=== PATIENT | male | born 1965 | race Caucasian/White ===

== ENCOUNTER 2022-01-07 02:18 | Emergency (ER) | payer BC, SELFPAY ==
[2022-01-07 02:30] VITALS: BP 151/83; PULSE 77; RESP 18; TEMP 36.1; O2SAT 95; BMI 32.4
[2022-01-07 03:38] VITALS: O2SAT 96
--- NOTE | 2022-01-07 03:50 | CRLHL7_ITS ---
For Patients: As a result of the Cures Act, medical imaging exams and procedure reports are released immediately into your electronic medical record. You may view this report before your referring provider. If you have questions, please contact your health care provider. INDICATION: Dyspnea TECHNIQUE: Chest radiograph 1 view COMPARISON: None FINDINGS: Mediastinum: The mediastinum is normal in appearance. The heart silhouette is normal in size and morphology. Lung: Both lungs are unremarkable in appearance. No sign of pleural effusion seen. No pneumothorax is identified. Bone and Soft tissue: Unremarkable for age. IMPRESSION: 1. No acute cardiopulmonary disease is seen. Dictated by: Rupesh Tan MD @ 01/07/2022 04:11:42 (Electronically Signed)
--- NOTE | 2022-01-07 03:51 | ED.CHESTPAIN ---
HPI - Chest Pain General Chief Complaint: Chest Pain Stated Complaint: Extreme pain in left and rt shoulder. Time Seen by Provider: 01/07/22 02:31 History of Present Illness HPI narrative: 36-year-old man presenting to the emergency department initially complaining of shoulder pain bilaterally but then also chest pain. Apparently about 6-1/2 hours prior to this interview was in bed started to feel a sensation of restless legs all over. Then some tingling this in his left hand and and then increasing bilateral shoulder to left chest area and left lower anterior rib area pain. This apparently was unbearable. Significant other accompanies him here today says that his pain tolerance is quite high and this was rather significant. No vomiting reported. No fever cough and cold symptoms. He does smoke. Denies a personal or family history of cardiovascular disease. They did have the thought that this might be anxiety as I discuss differential with them though reluctant to chalk it all up to that. He has had panic attacks in the past. Movement does exacerbate pain. Does report a history of some back pain in the past and that he has received Flexeril. Says ibuprofen acetaminophen do not help. Review of Systems Status of ROS Reports: 6 or more systems reviewed and unremarkable except as noted in History and below [facility], [facility] Social History Smoking Status: Current every day smoker What tobacco products do you use: cigarettes Do you use any of these nicotine containing products: None Second hand tobacco smoke exposure: No How often do you have a drink containing alcohol: 2-3 times a week How many standard drinks containing alcohol do you have on a typical day: 1 or 2 How often do you have six or more drinks on one occasion: Never AUDIT-C Alcohol total score: 3 Non-prescribed substance use: denies use service: No Exam Narrative Exam Narrative: Large man darkly complected. Deep voice consistent with smoking. Is breathing easily. Appears mildly anxious. Moving all extremities without difficulty. Good strength. Well perfused peripherally with equal radial pulses. Lungs appear to be clear. Cardiovascular RRR no MR Grimaldo albeit a little distant. Musculoskeletal with reproducible pain to palpation over the left rhomboid and trapezial musculature. He does report some soreness to rotational movement of the neck to the left. Little sore to anterior palpation of the left chest and the left anterior lateral rib margin. Oropharynx hyperemic Const Vital Signs, click to edit/add: Vital Signs - 24 hr 01/07/22 02:30 01/07/22 04:46 01/07/22 03:38 Temperature 97.0 F L Pulse Rate [Left Pulse Oximeter] 77 62 Respiratory Rate 18 16 Blood Pressure [Right Upper Arm] 151/83 H 147/83 H Pulse Oximetry 95 98 96 Oxygen Delivery Method Room Air Room Air 01/07/22 05:11 01/07/22 06:00 Temperature Pulse Rate [Left Pulse Oximeter] 66 83 Respiratory Rate 18 16 Blood Pressure [Right Upper Arm] 116/75 107/74 Pulse Oximetry 98 99 Oxygen Delivery Method Room Air Documenting provider has reviewed patient's vital signs: yes Course Reevaluation(s) Reevaluation #1: Improved. Still discomfort with left arm movement. Restless leg still present. Vital Signs Vital signs: Initial Vital Signs Temperature 97.0 F L 01/07/22 02:30 Temperature Source Tympanic 01/07/22 02:30 Pulse Rate 77 01/07/22 02:30 Pulse Rhythm 01/07/22 02:30 Respiratory Rate 18 01/07/22 02:30 Blood Pressure 151/83 H 01/07/22 02:30 Blood Pressure Mean 105 01/07/22 02:30 Blood Pressure Position Sitting 01/07/22 02:30 Pulse Oximetry 95 01/07/22 02:30 Oxygen Delivery Method 01/07/22 02:30 Vital Signs Temperature 97.0 F L 01/07/22 02:30 Pulse Rate 77 01/07/22 02:30 Respiratory Rate 18 01/07/22 02:30 Blood Pressure 151/83 H 01/07/22 02:30 Pulse Oximetry 95 01/07/22 02:30 Oxygen Delivery Method 01/07/22 02:30 Temperature 97.0 F L 01/07/22 02:30 Pulse Rate 83 01/07/22 06:00 Respiratory Rate 16 01/07/22 06:00 Blood Pressure 107/74 01/07/22 06:00 Pulse Oximetry 99 01/07/22 06:00 Oxygen Delivery Method 01/07/22 06:00 MDM - Chest Pain MDM Narrative Medical decision making narrative: I would suspect anxiety exacerbation/panic attack and resulting muscle spasms. Will workup chest pain. Labs overall reassuring. D-dimer normal. Troponin negative. Did receive fluids and low-dose morphine and ketorolac. There was continue complaint of pain and restless legs but then subsequently fell asleep. Had tentatively ordered pain dosing of ketorolac piggyback but was never given. Lab Data Attestation: I reviewed the patient's lab results. Labs: Lab Results 01/07/22 01/07/22 01/07/22 Range/Units 03:51 04:13 04:13 WBC 6.96 (4.50-11.00) K/uL RBC 4.58 (4.30-5.90) m/uL Hgb 14.2 (13.5-17.5) gm/dL Hct 41.6 (37.0-53.0) % MCV 91 (80-100) fL MCH 31 (26-34) pg MCHC 34 (32-36) gm/dL RDW Coeff of Timbo 12.8 (11.5-15.5) % Plt Count 259 (140-440) K/uL Neut % (Auto) 53.8 (42.0-72.0) % Lymph % (Auto) 33.2 (20-44) % [place] % (Auto) 8.3 (0.0-11.0) % Eos % (Auto) 4.2 (0.0-7.0) % Baso % (Auto) 0.4 (0.0-3.0) % Neut # (Auto) 3.74 (1.7-7.0) K/uL Lymph # (Auto) 2.31 (0.90-2.90) K/uL [place] # (Auto) 0.60 (0.00-0.90) K/UL Eos # (Auto) 0.29 (0.00-0.50) K/uL Baso # (Auto) 0.03 (0.00-0.30) K/uL Abs Immat Gran (auto) 0.01 (0.00-0.30) K/uL Imm/Tot Granulo (auto) 0.1 % D-Dimer Quant (PE/DVT) 0.38 (0.00-0.50) ug/ml Sodium (135-149) mmol/L Potassium (3.6-5.1) mmol/L Chloride (96-114) mmol/L Carbon Dioxide (20-32) mmol/L BUN (7-30) mg/dL Creatinine (0.5-1.5) mg/dL Estimated Creat Clear Estimated GFR ml/min Glucose (60-115) mg/dL Calcium (8.4-10.6) mg/dL Magnesium (1.5-2.6) mg/dL Total Bilirubin (0.1-1.5) mg/dL Direct Bilirubin (0.0-0.5) mg/dL AST (12-35) U/L ALT (4-50) U/L Alkaline Phosphatase (40-150) U/L Troponin I (0.01-0.04) ng/mL Total Protein (6.0-8.3) g/dL Albumin (3.3-5.0) g/dL POC Troponin I 0.00 L (0.01-0.04) ng/ml 01/07/22 01/07/22 Range/Units 04:13 04:13 WBC (4.50-11.00) K/uL RBC (4.30-5.90) m/uL Hgb (13.5-17.5) gm/dL Hct (37.0-53.0) % MCV (80-100) fL MCH (26-34) pg MCHC (32-36) gm/dL RDW Coeff of Timbo (11.5-15.5) % Plt Count (140-440) K/uL Neut % (Auto) (42.0-72.0) % Lymph % (Auto) (20-44) % [place] % (Auto) (0.0-11.0) % Eos % (Auto) (0.0-7.0) % Baso % (Auto) (0.0-3.0) % Neut # (Auto) (1.7-7.0) K/uL Lymph # (Auto) (0.90-2.90) K/uL [place] # (Auto) (0.00-0.90) K/UL Eos # (Auto) (0.00-0.50) K/uL Baso # (Auto) (0.00-0.30) K/uL Abs Immat Gran (auto) (0.00-0.30) K/uL Imm/Tot Granulo (auto) % D-Dimer Quant (PE/DVT) (0.00-0.50) ug/ml Sodium 137 (135-149) mmol/L Potassium 4.3 (3.6-5.1) mmol/L Chloride 111 (96-114) mmol/L Carbon Dioxide 22 (20-32) mmol/L BUN 16 (7-30) mg/dL Creatinine 0.9 (0.5-1.5) mg/dL Estimated Creat Clear 110.84 Estimated GFR 101 ml/min Glucose 100 (60-115) mg/dL Calcium 8.9 (8.4-10.6) mg/dL Magnesium 2.0 (1.5-2.6) mg/dL Total Bilirubin 0.5 (0.1-1.5) mg/dL Direct Bilirubin 0.2 (0.0-0.5) mg/dL AST 25 (12-35) U/L ALT 23 (4-50) U/L Alkaline Phosphatase 65 (40-150) U/L Troponin I < 0.01 L (0.01-0.04) ng/mL Total Protein 6.8 (6.0-8.3) g/dL Albumin 4.2 (3.3-5.0) g/dL POC Troponin I (0.01-0.04) ng/ml ECG Data Attestation: I personally reviewed and interpreted this ECG as follows: (Normal sinus rate of 66) Discharge Plan Discharge Clinical Impression: Atypical chest pain, Panic attack Patient Disposition: Home w/ Parent or Adult Condition: Improved Additional Instructions: Hydrate. Rest. Stretch. Try to get in a little heart pumping exercise daily. Return for increasing and persistent chest pain particularly if accompanied by shortness of breath, nausea, diaphoresis. Follow Up/Referrals: Provider,Not a Local [Primary Care Provider] - Stand Alone Forms: [employer] Info Instructions
--- OUTSIDE RECORDS SUMMARY | 2022-01-07 04:10 | XMS_ITS | Clinical Summary ---
:1965 Author Organization [employer] [facility] [place] [address] Care Team Providers Name Role Phone Pcp, No Primary Care Provider Unavailable Allergies No known active allergies Medications Medication Sig Dispensed Refills Start Date End Date Status cyclobenzaprine Use up to 45 Tablet 1 05/12/2021 Act toni (FLEXERIL) 10 mg three times tabletIndications: daily for Chronic pain of left muscle knee spasm/back pain. Use mostly at night only, may make you drowsy. naproxen (NAPROSYN) TAKE 1 60 Tablet 1 07/06/2021 Active 500 mg TABLET(500 tabletIndications: MG) BY MOUTH Chronic pain of left TWICE DAILY knee WITH MEALS NEEDED FOR PAIN sildenafiL, Take 20-100 30 Tablet 11 01/04/2022 Activ e pulm.hypertension, mg 30min to (REVATIO) 20 mg 4 hours tabletIndications: before Erectile dysfunction sexual of organic origin activity. Max 100mg/24hr. sildenafiL, TAKE 5 50 Tablet 1 11/19/2021 Discont inued pulm.hypertension, TABLETS BY 2 (*Med (REVATIO) 20 mg MOUTH ONCE com plete/Regimen tabletIndications: DAILY IF c omplete/Level Erectile dysfunction NEEDED. of care change) of organic origin Active Problems No known active problems Encounters Date Type Specialty Care Team Description 01/07/2022 Nurse Triage Pcp, No Pain; restlessn ess 01/04/2022 Office Visit Alyson Chu MD Knee Pain/problem (left knee, x4 surger ies, arthritis in kn ee, 10 on pain scale at w orst); Pain (Tennis elbow/) ; Lab (Lipid panel, testoste gissell levels); Foot Problem (b ottom of both feet, lump, cau ses pain when touched); Immunization/In jection 01/04/2022 Travel 11/17/2021 Refill Ravi Nieto, Refill Request (Sildenafil (Pulm.hypertens ion)) 10/30/2021 Refill Ravi Nieto, Refill Request (Sildenafil (Pulm.hypertens ion)) from Last 3 Months Immunizations Name Administration Dates Next Due Tdap 01/04/2022 Social History Tobacco Use Types Packs/Day Years Used Date Current Every Day Smoker Cigarettes Smokeless Tobacco: Never Used Tobacco Cessation: Ready to Quit: No; Co unseling Given: Yes Alcohol Use Standard Drinks/Week Comments Yes 0 (1 standard drink = 0.6 oz pure alcoho l) occassionally Alcohol Habits Answer Date Recorded How often do you have a drink containing alcohol? Not asked How many drinks containing alcohol do you have on a Not aske d typical day when you are drinking? How often do you have six or more drinks on one occasion? No t asked Comment: occassionally 05/08/2021 Sex Assigned at Date Recorded Not on file COVID-19 Exposure Response Date Recorded In the last 10 days, have you been in contact with No / Unsu re 01/04/2022 2:46 PM [employer] [employer] someone who was confirmed or suspected to have Coronavirus/COVID-19? Obstetrics History Last Filed Vital Signs Vital Sign Reading Time Taken Comments Blood Pressure 136/80 01/04/2022 3:06 PM [employer] [employer] Pulse 68 01/04/2022 3:06 PM [employer] [employer] Temperature 36.7 ??C (98 ??F) 05/08/2021 3:22 PM CDT Respiratory Rate 18 05/08/2021 3:22 PM CDT Oxygen Saturation 99% 01/04/2022 3:06 PM [employer] [employer] Inhaled Oxygen Concentration - - Weight 117.7 kg (259 lb 6.4 oz) 01/04/2022 3:06 PM [employer] [employer] Height 190.6 cm (6' 3.04) 01/04/2022 3:06 PM [employer] [employer] Body Mass Index 32.39 01/04/2022 3:06 PM [employer] [employer] Plan of Treatment Health Maintenance Due Date Last Done Comments COVID-19 vaccine series (#1) 04/21/1967 Pneumococcal series for age 19-64 (1 - 1972 PCV) HIV for age 15-65 1981 Hepatitis C screening for age 18-79 1984 Colonoscopy through age 75 10/20/2011 Lipids for age 45-75 10/20/2011 Zoster (shingles) series for age 50+ (1 of 2016 2) Influenza for age 50-64 10/22/2021 BMI (ht and wt on same day) for age 18+ 01/04/2023 01/05/20, 05/08/2021 Depression screening for age 12+ 01/07/2023 01/07/2022, Tetanus booster 01/05/2032 01/04/2022 Tdap Completed 01/04/2022 Results Not on filefrom Last 3 Months Insurance Payer Benefit Plan / Subscriber ID Effective Dates Phone Addre ss Type Group BLUE CROSS BLUE CROSS OF [id number] 2021-Present [address] [address] [place] [address] Care Teams Returns Clerk Relationship Specialty Start Date End Date Pcp, No PCP - General 01/12/21 .
[2022-01-07 04:22] LABS: Basophils Absolute Auto 0.03 K/uL (0.00-0.30); Basophils Percent Auto 0.4 % (0.0-3.0); Eosinophils Absolute Auto 0.29 K/uL (0.00-0.50); Eosinophils Percent Auto 4.2 % (0.0-7.0); Hematocrit 41.6 % (37.0-53.0); Hemoglobin* 14.2 gm/dL (13.5-17.5); Immature Granulocytes Abs Auto 0.01 K/uL (0.00-0.30); Immature Granulocytes Pct Auto 0.1 %; Lymphocytes Absolute Auto 2.31 K/uL (0.90-2.90); Lymphocytes Percent Auto 33.2 % (20-44); Mean Corpuscular HGB Conc 34 gm/dL (32-36); Mean Corpuscular Hemoglobin 31 pg (26-34); Mean Corpuscular Volume 91 fL (80-100); Monocytes Percent Auto 8.3 % (0.0-11.0); Neutrophils Absolute Auto 3.74 K/uL (1.7-7.0); Neutrophils Percent Auto 53.8 % (42.0-72.0); Platelet Count* 259 K/uL (140-440); RDW Coefficient of Variation % 12.8 % (11.5-15.5); Red Blood Count 4.58 m/uL (4.30-5.90); White Blood Count* 6.96 K/uL (4.50-11.00)
[2022-01-07] MEDS: LORazepam 2 MG/ML inj 0.5 MG IVP (04:22)
[2022-01-07] MEDS: 0.9 % SODIUM CHLORIDE 500 ML 500 ML IV (04:22)
[2022-01-07] MEDS: MORPHINE 4 MG/ML INJ IVP (04:22)
[2022-01-07 04:25] LABS: Slide Review Reflex No
[2022-01-07 04:37] LABS: Chloride* 111 mmol/L (96-114); Potassium* 4.3 mmol/L (3.6-5.1); Sodium* 137 mmol/L (135-149)
[2022-01-07 04:40] LABS: Blood Urea Nitrogen* 16 mg/dL (7-30); Calcium* 8.9 mg/dL (8.4-10.6); Carbon Dioxide* 22 mmol/L (20-32); Creatinine* 0.9 mg/dL (0.5-1.5); Est. Creatinine Clearance* 110.84; Estimated Glomerular Filt Rate 101 ml/min; Glucose* 100 mg/dL (60-115)
[2022-01-07] MEDS: KETOROLAC 30 MG/ML inj IVP (04:43)
[2022-01-07 04:46] VITALS: BP 147/83; PULSE 62; RESP 16; O2SAT 98
[2022-01-07 04:50] LABS: D Dimer Quantitative* 0.38 ug/ml (0.00-0.50)
[2022-01-07 04:54] LABS: Troponin I* < 0.01 ng/mL (0.01-0.04)
[2022-01-07 04:55] LABS: Alanine Aminotransferase* 23 U/L (4-50); Albumin* 4.2 g/dL (3.3-5.0); Alkaline Phosphatase* 65 U/L (40-150); Aspartate Amino Transferase* 25 U/L (12-35); Bilirubin Direct* 0.2 mg/dL (0.0-0.5); Bilirubin Total* 0.5 mg/dL (0.1-1.5); Total Protein* 6.8 g/dL (6.0-8.3)
[2022-01-07 05:11] VITALS: BP 116/75; PULSE 66; RESP 18; O2SAT 98
[2022-01-07 06:00] VITALS: BP 107/74; PULSE 83; RESP 16; O2SAT 99
== END 2022-01-07 06:36 | disposition home or self-care (01) ==
PROVIDERS: Emergency Provider Family Medicine
DX: R07.89 Other chest pain (principal); F41.0 Panic disorder [episodic paroxysmal anxiety]
CPT/HCPCS: 36415; 71045; 80048; 80076; 83735; 84484; 85025; 85379; 93005; 94761; 96365; 96375; 99283; 99284; 99285; J1885; J2060; J2270; J7120

== ENCOUNTER 2023-03-28 06:27 | Day surgery (SDC) | payer OTHER, SELFPAY ==
[2023-03-28] VITALS (7 sets, daily range): BP systolic 131–150; BP diastolic 77–90; PULSE 58–71; RESP 15–18; TEMP 36.6; O2SAT 96–97; BMI 19.9
--- OUTSIDE RECORDS SUMMARY | 2023-03-28 06:30 | XMS_ITS | Clinical Summary ---
Author Name Unknown Organization [employer] [facility] Address [place], [place] [address] Care Team Providers Care Manager Roofing Name Role Phone Pcp, No Primary Care Provider Unavailabl e Allergies No known active allergies Medications Medication Sig Dispensed Refills Start Date End Date Status cyclobenzaprine (FLEXERIL) 10 mg tabletIndications :Chronic pain of left knee Use up to three times daily for muscle spasm/back pain. May make you drowsy. 45 Tablet 2 01/28/2023 Active sildenafiL, pulm.hypertension , (REVATIO) 20 mg tabletIndications :Erectile dysfunction of organic origin Take 20-100 mg 30min to 4 hours before sexual activity. Max 100mg/24hr. 50 Tablet 11 01/28/2023 Active varenicline (CHANTIX) 1 mg tabletIndications :Tobacco dependence Take 1 mg by mouth two times daily with meals. 112 Tablet 0 01/28/2023 Active nicotine (NICORETTE) 2 mg gumIndications:To bacco dependence Chew 1 gum (2 mg) every hour while awake as needed for Nicotine Craving. 200 Each 2 01/28/2023 Active nicotine 14 mg/24 hr (NICODERM; HABITROL) 14 mg/24 hr patchIndications: Tobacco dependence Apply 1 Patch on dry, clean, hairless skin once daily. 14 Patch 3 01/28/2023 Active meloxicam 15 mg tabletIndications :Trigger ring finger of left hand,Golfer's elbow, left Take 1 Tablet (15 mg) by mouth once daily. 14 Tablet 0 03/18/2023 Active naproxen (NAPROSYN) 500 mg tabletIndications :Chronic pain of left knee TAKE 1 TABLET(500 MG) BY MOUTH TWICE DAILY WITH MEALS NEEDED FOR PAIN 60 Tablet 1 07/06/2021 03/18/2023 Discontinued (*Patient states no longer taking) amoxicillin-clavu lanate 875-125 mg tablet (AUGMENTIN) Take 1 Tablet by mouth two times daily with meals. 0 05/07/2022 03/18/2023 Discontinued (*Med complete/Reg imen complete/Lev el of care change) predniSONE (DELTASONE) 20 mg tablet As directed 10 mg. 0 05/07/2022 03/18/2023 Discontinued (*Med complete/Reg imen complete/Lev el of care change) meloxicam 15 mg tabletIndications :Trigger ring finger of left hand,Golfer's elbow, left Take 1 Tablet (15 mg) by mouth once daily. 14 Tablet 0 03/18/2023 03/18/2023 Discontinued (*Medication adjustment) Active Problems No known active problems Encounters Date Type Department Care Team Description 03/18/2023 9:00 AM [facility]PER[facility]OR [facility] [address] [place] [address] Marian Cohn MD Occ Med (LEFT elbow and ring finger - 03/17/2023 twisted and had intense pain in the hand) 03/18/2023 Travel 01/31/2023 [facility] [address] [place] [address] Shayla Ragsdale, DO Refill Request; VARENICLINE 01/28/2023 3:40 PM [facility]PERVISOR Phone [facility] [address] [place] [address] Shayla Ragsdale, DO Medication Management 01/12/2023 2:00 PM [facility]PER[facility] [address] [place] [address] Aidan Rodríguez MD Musculoskeletal Problem (Consult left 4th trigger finger, and left elbow pain would like to do injections today per Dr. Charles) 01/12/2023 Travel from Last 3 Months Immunizations Name Administration Dates Next Due Tdap 01/04/2022 Social History Tobacco Use Types Packs/Day Years Used Date Smoking Tobacco: Every Day Cigarettes 1 44.1 Started: 02/21/1979 Smokeless Tobacco: Never Tobacco Cessation:Ready to Q uit: No; Counseling Given: Yes Comments:10-20 cigs daily - bored so he smokes Alcohol Use Standard Drinks/Week Comments Yes 6 (1 standard drink = 0.6 oz pur e alcohol) occassionally PHQ-2 Answer Date Recorded PHQ-2 TOTAL SCORE 0 01/04/2022 Social Connections Answer Date Recorded Frequency of Communication with Friends and Fami ly Not on file 05/08/2021 Sex and Gender Information Value Date Recorded Sex Assigned at Not on file Gender Identity Not on file Sexual Orientation Not on file Obstetrics History Last Filed Vital Signs Vital Sign Reading Time Taken Comments Blood Pressure 129/87 03/18/2023 9:12 AM [facility] SUPERVISOR Pulse 85 03/18/2023 9:12 AM [facility] OFFICE SUPERVISOR Temperature 36.8 ??C (98.2 ??F) 01/12/2023 2:07 PM CS T Respiratory Rate 18 05/08/2021 3:22 PM CDT Oxygen Saturation 96% 03/18/2023 9:12 AM [facility]PERVISOR Inhaled Oxygen Concentration - - Weight 119.7 kg (264 lb) 03/18/2023 9:12 AM [facility] OFF[facility] SUPERVISOR Height 187.4 cm (6' 1.78) 02/04/2022 11:[address] Body Mass Index 34.1 02/04/2022 11:26 AM [facility] OFF[facility] SUPERVISOR Plan of Treatment Health Maintenance Due Date Last Done Comments COVID-19 vaccine series (#1) 04/21/1967 Pneumococcal series for age 6-64 (1 of 2 - PCV) 1972 Colonoscopy through age 75 10/20/[address] (for lung CA) age 50-80 2016 Zoster (shingles) series for age 50+ (1 of 2) 2016 Influenza for age 50-64 10/22/2022 Depression screening for age 12+ 01/07/2023 01/08/20, 01/04/2022 BMI (ht and wt on same day) for age 18+ 02/04/2023 02/04/2022, 01/04/2022, 05/08/2021 Lipids for age 45-75 02/04/2027 02/04/2022 Tetanus booster 01/05/2032 01/04/2022 Tdap Completed 01/04/2022 HIV for age 15-65 Completed 02/04/2022 Hepatitis C screening for age 18-79 Completed 02/04 Care Teams Manager Roofing Relationship Specialty Start Date End Date Pcp, No . PCP - General 01/12/21
[2023-03-28] MEDS: ETHYL CHLORIDE 1 APPLICATION 1 APPLIC TOPICAL (06:50)
[2023-03-28] MEDS: BUPIVACAINE 0.5% 30 ML INJECTION (06:50)
--- NOTE | 2023-03-28 07:08 | SUR.PREOP ---
SAME DAY SURGERY LOCAL INJECTION SITE VERIFICATION WAS PERFORMED BY SURGEON/PA AND PATIENT PRIOR TO LOCAL ANESTHETIC BEING INJECTED TO OPERATIVE SITE.
[2023-03-28] MEDS: BACITRACIN OINTMENT BULK TUBE 1 APPLIC TOPICAL (07:30)
--- NOTE | 2023-03-28 07:30 | PM.ORPRC ---
Procedure Note Date of procedure: 03/28/23 Procedure: PREOPERATIVE DIAGNOSIS: 1. Left ring finger flexor tenosynovitis - trigger finger POSTOPERATIVE DIAGNOSIS: 1. Left ring finger flexor tenosynovitis - trigger finger PROCEDURE: 1. Left ring finger flexor tendon sheath open release (A1 contreras) SURGEON: Rod Ribeiro MD. SPECIAL NEEDS BUS DRIVER: ANIYA Pretty ANESTHESIA: Local anesthetic 4ml via 50:50 mixture of 2 % Lidocaine with epi and 0.5% marcaine plain EBL: 2ml IMPLANTS: None TOURNIQUET: None COMPLICATIONS: None evident INDICATIONS: The patient is a pleasant 57-year-old male who has experienced left ring finger catching/triggering for number of months. It has progressively gotten worse. Given the failure of nonoperative management, and how this affects daily life, surgery was recommended. DESCRIPTION OF PROCEDURE: Following a thorough discussion of risks, benefits, and alternatives consent was obtained and the operative digit(s) was marked. The patient was brought to the operating room and placed supine on the operating table. Local anesthesia induction was undertaken in preop holding. No antibiotics were administered as this was planned to be a local case only. Proper time-out was performed identifying proper patient, site, and procedure. The operative extremity was prepped and draped in the appropriate sterile fashion using ChloraPrep. An incision was made on the palmar surface of the hand overlying the MCP joint region of the appropriate digit(s) respecting the palmar creases being cautious not to cross these perpendicularly. Sharp incision through the skin, and blunt dissection through subcutaneous tissue allowing protection of crossing neurologic structures. The A1 contreras was visualized directly. It was incised sharply with a 15 blade. It was released completely from its distal to proximal extent under direct visualization. The tendon was inspected and found to be mildly striated consistent with some friction. Otherwise, it was intact. The tendon was removed out of the wound, and further inspected. The patient was asked to manually flex and extend the digits and showed no further catching. The catching which was visualized after tourniquet inflation, was no longer evident with reproduction of a manual fist and relaxation. Closure was performed with 4-O nylon in interrupted fashion. Soft dressings were applied, and the patient was transferred to the recovery room in stable condition. PLAN: 1. Encourage elevation of the operative extremity. 2. Range of motion and icing of the fingers and hand/wrist as tolerated/needed. 3. Ibuprofen/acetaminophen and/or oxycodone as needed for pain control. 4. Follow up with PA visit in 12-16 days for wound check and suture removal.
--- NOTE | 2023-03-28 07:47 | SUR.PHASEII ---
Patient did not care for food/drink. Patient verbalized readiness to go home and understanding of post operative instructions.
== END 2023-03-28 07:47 | disposition home or self-care (01) ==
PROVIDERS: PCP Student in an Organized Health Care Education/Training Program; Visit Provider Orthopaedic Surgery Sports Medicine
PROC: (CPT 26055; principal; 2023-03-28 07:15)
DX: M65.342 Trigger finger, left ring finger (principal); M65.842 Other synovitis and tenosynovitis, left hand
CPT/HCPCS: 26055; J0665

== ENCOUNTER 2023-06-15 06:00 | Day surgery (SDC) | payer OTHER, SELFPAY ==
--- OUTSIDE RECORDS SUMMARY | 2023-06-15 06:03 | XMS_ITS | Clinical Summary ---
Author Name Unknown Organization [facility] Address [place], [place] [address] Care Team Providers Care Internist Medical Doctor Md Name Role Phone Pcp, No Primary Care [...] Max 100mg/24hr. 50 Tablet 11 01/28/2023 Active meloxicam 15 mg tabletIndications :Trigger ring finger of left hand,Golfer's elbow, left Take 1 Tablet (15 mg) by mouth once daily. 14 Tablet 03/18/2023 Active varenicline (CHANTIX) 1 mg tabletIndications :Tobacco dependence Take 1 mg by mouth two times daily with meals. 112 Tablet 01/28/2023 06/06/2023 Discontinued (*Patient states no longer taking) nicotine (NICORETTE) 2 mg gumIndications:To bacco dependence Chew 1 gum (2 mg) every hour while awake as needed for Nicotine Craving. 200 Each 2 01/28/2023 06/06/2023 Discontinued (*Patient states no longer taking) nicotine 14 mg/24 hr (NICODERM; HABITROL) 14 mg/24 hr patchIndications: Tobacco dependence Apply 1 Patch on dry, clean, hairless skin once daily. 14 Patch 3 01/28/2023 06/06/2023 Discontinued (*Patient states no longer taking) Active Problems No known active problems Encounters Date Type Department Care Team Description 06/06/2023 10:25 AM CDT Office Visit [facility] [address] [facility] [address] Shayla Ragsdale, Pre-Op Exam (Having ulna nerve moved 06/15/23 [facility], dr blade beltre ) 06/06/2023 Travel 03/18/2023 9:00 AM GROCERY SACKER Office Visit [facility] [address] [facility] [place] [address] Marian Cohn MD Occ Med (LEFT elbow and ring finger - 03/17/2023 twisted and had intense pain in the hand) 03/18/2023 Travel from Last 3 Months Immunizations Name Administration Dates Next Due Tdap 01/04/2022 Social History Tobacco Use Types Packs/Day Years Used Date Smoking Tobacco: Every Day Cigarettes 1 44.3 Started: 02/21/1979 Smokeless Tobacco: Never Tobacco Cessation:Ready [...] Sign Reading Time Taken Comments Blood Pressure 142/79 06/06/2023 10:26 AM CDT Pulse 67 06/06/2023 10:26 AM CDT Temperature 36.8 ??C (98.2 ??F) 01/12/2023 2:07 PM CS T Respiratory Rate 18 05/08/2021 3:22 PM CDT Oxygen Saturation 99% 06/06/2023 10:26 AM CDT Inhaled Oxygen Concentration - - Weight 122 kg (269 lb) 06/06/2023 10:26 AM CDT Height 188 cm (6' 2) 06/06/2023 10:26 AM CDT Body Mass Index 34.54 06/06/2023 10:26 AM CDT Plan of Treatment Health Maintenance Due Date Last Done Comments Pneumococcal series for age 6-64 (1 of 2 - PCV) 1972 Colonoscopy through age 75 10/20/[address] (for lung CA) ag e 50-80 2016 Zoster (shingles) series for age 50+ (1 of 2) 2016 COVID-19 vaccine series (2022-24 season) 2022 Depression screening for age 12+ 01/07/2023 01/08/20 22, 01/04/2022 Influenza for age 50-64 10/23/2023 BMI (ht and wt on same day) for age 18+ 06/05/2024 06/06/2023, 02/04/2022, 01/04/2022, Additional history exists Lipids for age 45-75 02/04/2027 02/04/2022 Tetanus booster 01/05/2032 01/04/2022 Tdap Completed 01/04/2022 HIV for age 15-65 Completed 02/04/2022 Hepatitis C screening for ag e 18-79 Completed 02/04/2022 Procedures Procedure Name Priority Date/Time Associated Diagnosis Comments ANTI HIV 1/2 Routine 02/04/2022 12:13 PM GROCERY SACKER Screening for HIV (human immunodeficiency virus) ANTI HCV Routine 02/04/2022 12:13 PM GROCERY SACKER Need for hepatitis C screening test LIPID PANEL W REFLEX MEASURED LDL Routine 02/04/2022 12:13 PM GROCERY SACKER Screening for lipid disorders from Last 3 Months or Most Recently Relevant to Health Maintenance Results * (ABNORMAL) LIPID PANEL W REFLEX MEASURED LDL [[id number]] (02/04/2022 12:13 PM GROCERY SACKER) CHOLESTEROL,TOTAL 222(H) 100 - 199 mg/dL 02/06/2022 9:38 PM GROCERY SACKER [facility] TRIGLYCERIDES 69 <150 mg/dL 02/06/2022 9:38 PM GROCERY SACKER [facility] HDL CHOLESTEROL 45 >40 mg/dL 9:38 PM GROCERY SACKER [facility] NON-HDL CHOLESTEROL 177(H) <145 mg/dl 02/06/2022 9:38 PM GROCERY SACKER [facility] CHOL/HDL RATIO 4.93(H) <4.50 02/06/2022 9:38 PM GROCERY SACKER [facility] LDL CHOLESTEROL 163(H) <=130 mg/dL 02/06/2022 9:38 PM GROCERY SACKER [facility] VLDL CHOLESTEROL 14 <=30 mg/dL 02/06/2022 9:38 PM GROCERY SACKER [facility] PROVIDER ORDERED STATUS RANDOM 02/06/2022 9:38 PM GROCERY SACKER [facility] Blood BLOOD SPECIMEN / Unknown Venipuncture / Unknown 02/04/2022 12:13 PM GROCERY SACKER 02/04/2022 12:15 PM GROCERY SACKER Sharon Maldonado DO CHEMISTRY Performing Organization Address City/[facility]/ZIP Co de Phone Number [facility] [address] [place] [address], [place] * ANTI HCV (02/04/2022 12:13 PM GROCERY SACKER) HEPATITIS C ANTIBODY Non-React toni Non-React toni 02/06/2022 9:23 PM GROCERY SACKER [facility] Comment:Antibodies to HCV no t detected; does not exclude the possibility of exposure to HCV. Blood BLOOD SPECIMEN / Unknown Venipuncture / Unknown 02/04/2022 12:13 PM GROCERY SACKER 02/04/2022 12:15 PM GROCERY SACKER Sharon Maldonado DO SEND OUTS [facility] [address] [place] [address], * ANTI HIV 1/2 [76635.0] (02/04/2022 12:13 PM GROCERY SACKER) HIV-1/HIV-2 ANTIBODY Non-Reacti ve Non-Reacti ve 02/07/2022 10:09 AM GROCERY SACKER [facility] Comment:HIV-1 p24 and HIV-1/ HIV-2 Ab not detected. Blood BLOOD SPECIMEN / Unknown Venipuncture / Unknown 02/04/2022 12:13 PM GROCERY SACKER 02/04/2022 12:15 PM GROCERY SACKER Opaljuwan Hankinsesther SEND OUTS [facility] [address] [place] [address], from Last 3 Months or Most Recently Relevant to Health Maintenance Care Teams Internist Medical Doctor Md Relationship Specialty Start Date End Date Pcp, No . PCP - General 01/12/21
[2023-06-15 06:37] VITALS: BP 124/82; PULSE 67; RESP 16; TEMP 36.5; O2SAT 96; BMI 34.5
[2023-06-15] MEDS: SODIUM CHLORIDE 0.9 % (FLUSH) 10 ML SYRINGE IVF (07:01)
[2023-06-15] MEDS: LACTATED RINGERS 1000 ML 1,000 ML 100 ML IV ×2 (07:01→10:11)
[2023-06-15 07:09] VITALS: BP 126/88; PULSE 69; RESP 16; O2SAT 96
--- NOTE | 2023-06-15 07:14 | SUR.PREOP ---
TIME?OUT:?07 PT/RN/MDA?VERIFICATION?OF?SURGICAL?SITE,?PROCEDURE,?AND?CONSENT OBTAINED?PRIOR?TO?INVASIVE?PROCEDURE.
[2023-06-15 07:15] VITALS: BP 124/80; PULSE 63; RESP 16; O2SAT 98
[2023-06-15] MEDS: fentaNYL 100 MCG/2 ML inj IVP (07:15)
[2023-06-15] MEDS: MIDAZOLAM HCL 1 MG/ML inj IVP (07:15)
--- NOTE | 2023-06-15 07:18 | W.PM.H&PU ---
History & Physical Update History & Physical Update H&P Reviewed and patient assessed: No changes noted
[2023-06-15] MEDS: CEFAZOLIN 2 GM in 0.9 % SODIUM CHLORIDE Mini-bag 100 ML IVPB (07:40)
--- NOTE | 2023-06-15 07:51 | SUR.OPER ---
PATIENT QUESTIONS ANSWERED SATISFACTORILY PREOPERATIVELY. PATIENT BROUGHT TO OR #3 PER CART FOLLOWING THE BLOCK. Patient positioned supine on OR #3 bed for the induction.? Left arm elevated on an IV pole in a padded strap for prep. Final approval of positioning by surgeon.
--- NOTE | 2023-06-15 08:47 | PM.ORPRC ---
Procedure Note Date of procedure: 06/15/23 Procedure: PREOPERATIVE DIAGNOSIS: 1. Left ulnar nerve neuropathy; cubital tunnel syndrome 2. Left medial elbow tendinosis/tendinitis, chronic POSTOPERATIVE DIAGNOSIS: 1. Left ulnar nerve neuropathy; cubital tunnel syndrome (with unstable ulnar nerve) 2. Left medial elbow tendinosis/tendinitis, chronic PROCEDURE: 1. Left ulnar nerve decompression and anterior subcutaneous transposition 2. Left medial elbow open flexor pronator tenotomy SURGEON: Rod Ribeiro MD MEDICAID BILLING SPECIALIST: Jose KWAN (Of note, use of an asset protection assistant was critical for this case to aid in patient positioning, tissue retraction, nerve protection, arm positioning, suture management, and closure as well as splint application.) ANESTHESIA: Axillary block plus MAC EBL: 2 mL TOURNIQUET: 46 min at 225 torr IMPLANTS: None COMPLICATIONS: None evident INDICATIONS FOR PROCEDURE: The patient is a pleasant 57-year-old male. They have experienced left upper extremity numbness and tingling involving ulnar 1.5 digits. 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 Given the patient's difficulty with use of this extremity as well as failure of nonoperative management, recommendation was made for surgery. DESCRIPTION OF PROCEDURE: Following a thorough discussion of the risks, benefits and alternatives, consent was obtained and the left medial elbow was marked. The patient was brought to the operating room, placed supine on the operating table. Induction of anesthesia was undertaken. Appropriate time out was performed identifying proper patient, site, and procedure. 3 g IV Ancef was administered within 1 hr incision preoperatively. The operative upper extremity was prepped and draped in the appropriate sterile fashion using ChloraPrep prep. The limb was exsanguinated and the tourniquet inflated. A longitudinal incision was made along the medial elbow extending proximal and distal approximately 3-5 cm in either direction. Sharp incision through the skin and blunt dissection through the subcutaneous tissue allowed protection of crossing neurologic structures. Proximally, blunt dissection continued to the depth of the ulnar nerve itself. The nerve was released from its surrounding tissues beginning proximally and moving toward the distal extent. This included ligament of [place], medial intermuscular septum, cubital tunnel, FCU fascial sling, etc. The vena comitantes was maintained with the nerve and caution was taken particularly around the motor branches of the ulnar nerve. In addition, multiple subcutaneous crossing branches were spared. After releasing the nerve circumferentially, we then evaluated the need for transposition based on any subluxation/dislocation during elbow flexion. Indeed the nerve showed itself to be unstable with elbow flexion beyond 60? prompting subcutaneous anterior transposition of the nerve. As such, a fascial sling was created at the flexor/pronator mass origin off the medial humeral epicodyle. Additionally, the medial intermuscular septum was visualized and released for approximately 4 cm proximal to the medial humeral epicondyle so the nerve would not rub on/be irritated by this rigid fibrpus structure. The nerve was then transposed anteriorly, the fascial sling loosely sutured to the subcutaneous layer directly overlying it, and a Newton could easily be positioned alongside the nerve deep to the fascial sling ensuring that there is not excessive tension on the nerve. Of note, prior to actual securing of this fascial sling and complete transposition of the nerve, the medial flexor pronator tendon origin was assessed. Indeed, this showed significant scar/pathologic tissue. Very different than the typical she and clear striations of healthy tendon. This abnormal tendinous origin tissue was excised sharply with a 15 blade, rongeur, and curette and rongeur were utilized to help debride the medial humeral epicondyle. Excellent bleeding bone was encountered. Thorough irrigation with normal saline was performed now, and there is still significant good connection of the flexor pronator tendon tissue, but again the central 6-7 mm was excised due to pathologic tissue. The tourniquet was deflated, hemostasis achieved, and a thorough irrigation performed. Closure was performed with 2-O Vicryl and 3-0 Monocryl for the subcutaneous and subcuticular closure, respectively. The carpal tunnel was then closed with 4-0 nylon in interrupted mattress fashion. Dressings were applied. Posterior long-arm splint was applied. PLAN: 1. Encourage elevation of the operative extremity. 2. Range of motion of the fingers and hand/wrist as tolerated. 3. Ibuprofen/acetaminophen and/or oxycodone as needed for pain control. 4. Follow up with PA visit or nurse visit in 2 days for splint removal and then at the 12-16 day point for wound check and suture removal.
[2023-06-15 09:00] VITALS: BP 112/73; PULSE 60; RESP 16; TEMP 36.1; O2SAT 93
[2023-06-15] MEDS: OxyCODONE/APAP 5-325 TABLET PO (09:28)
--- NOTE | 2023-06-15 09:50 | W.ANESCHARGE ---
Anesthesia Charges Start Date/Time Anesthesia Start Date: 06/15/23 Anesthesia Start Time: 07:23 Stop Date/Time Anesthesia Stop Date: 06/15/23 Anesthesia Stop Time: 09:03
--- NOTE | 2023-06-15 09:51 | W.PM.NB ---
Nerve Block Nerve Block Time Seen by Provider: 07:18 Date Seen: 06/15/23 Type of block requested by surgeon for post-operative analgesia: axillary Side: left Time out performed: Yes Verification of patient name: Yes Verification of date of : Yes Site marking: site marked Name of person performing procedure: Ryan Continuous monitoring Was continuous monitoring of O2 sat, B/P, tooling engineering tech, recorded every 15 minutes?: Yes Procedure Checklist: sterile prep, needles and gloves Ultrasound guided. Images saved: Yes Medications given in 5ml increments after negative aspiration: Ropivicaine %: 0.5 mL: 15 Needle gauge: 22 and Lidocaine %: 2 mL: 15 Patient tolerated procedure well: Yes Additional comments: Needle noted adjacent to nerve Block Charges Block Charge (with Pro Fee): Brachial Plexus Use of Ultrasound Machine for Block: Yes- US Guidance/pain block
--- NOTE | 2023-06-15 10:28 | W.ANESCHARGE ---
Anesthesia Charges Start Date/Time Anesthesia Start Date: 06/15/23 Anesthesia Start Time: 07:23 Stop Date/Time Anesthesia Stop Date: 06/15/23 Anesthesia Stop Time: 09:03
== END 2023-06-15 10:20 | disposition home or self-care (01) ==
LOC: OR 06:01
PROVIDERS: PCP Student in an Organized Health Care Education/Training Program; Visit Provider Orthopaedic Surgery Sports Medicine
PROC: (CPT 64721; principal; 2023-06-15 07:15)
DX: G56.22 Lesion of ulnar nerve, left upper limb (principal); M77.02 Medial epicondylitis, left elbow; G89.18 Other acute postprocedural pain
CPT/HCPCS: 64718; 24358; 01712; 01810; 64415; 76942; A4580; A9270; J0690; J1100; J2250; J2405; J2704; J2795; J3010; J3490; J7120

== ENCOUNTER 2023-10-11 09:03 | Outpatient (CLI) | payer OTHER, SELFPAY ==
--- OUTSIDE RECORDS SUMMARY | 2023-10-11 09:06 | XMS_ITS | Clinical Summary ---
Author Organization [facility] Address [place], [place] [address] Care Team Providers Care Mobile Product Manager Name Role Phone Pcp, No Primary Care Provider Unavailabl e Allergies No known active allergies Medications Medication Sig Dispensed Refills Start Date End Date Status cyclobenzaprine (FLEXERIL) 10 mg tabletIndications:Drying Can Worker santos pain of left knee Use up to three times daily for muscle spasm/back pain. May make you drowsy. 45 Tablet 2 01/28/2023 Active sildenafiL, pulm.hypertension, (REVATIO) 20 mg tabletIndications:Erec tile dysfunction of organic origin Take 20-100 mg 30min to 4 hours before sexual activity. Max 100mg/24hr. 50 Tablet 11 01/28/2023 Active meloxicam 15 mg tabletIndications:Trig anne ring finger of left hand,Golfer's elbow, left Take 1 Tablet (15 mg) by mouth once daily. 14 Tablet 03/18/2023 Active Active Problems No known active problems Immunizations Name Administration Dates Next Due Tdap 01/04/2022 Social History Tobacco Use Types Packs/Day Years Used Date Smoking Tobacco: Every Day Cigarettes 1 44.6 Started: 02/21/1979 Smokeless Tobacco: Never Tobacco Cessation:Ready [...] (1 of 2) 2016 COVID-19 vaccine series ( season) 2022 Depression screening for age 12+ [...] ANTI HIV 1/2 Routine 02/04/2022 12:13 PM [employer]ISS[employer] Screening for HIV (human immunodeficiency virus) ANTI HCV Routine 02/04/2022 12:13 PM [employer] Need for hepatitis C screening test LIPID PANEL W REFLEX MEASURED LDL Routine 02/04/2022 12:13 PM [employer] Screening for lipid disorders from Last 3 Months or Most Recently Relevant to Health Maintenance Results * (ABNORMAL) LIPID PANEL W REFLEX MEASURED LDL [[id number]] (02/04/2022 12:13 PM [employer]) CHOLESTEROL,TOTAL 222(H) 100 - 199 mg/dL 02/06/2022 9:38 PM COMMISS[employer]ED [employer] OFFICER [facility] TRIGLYCERIDES 69 <150 mg/dL 02/06/2022 9:38 PM COMMISS[employer] OFFICER [facility] HDL CHOLESTEROL 45 >40 mg/dL 9:38 PM COMMISS[employer] OFF[employer]ER [facility] NON-HDL CHOLESTEROL 177(H) <145 mg/dl 02/06/2022 9:38 PM COMMISS[employer]ED [employer] OFF[employer]ER [facility] CHOL/HDL RATIO 4.93(H) <4.50 02/06/2022 9:38 PM COMMISS[employer]ED [employer] OFF[employer]ER [facility] LDL CHOLESTEROL 163(H) <=130 mg/dL 02/06/2022 9:38 PM COMMISS[employer] OFF[employer]ER [facility] VLDL CHOLESTEROL 14 <=30 mg/dL 02/06/2022 9:38 PM COMMISS[employer]ED [employer] OFFICER [facility] PROVIDER ORDERED STATUS RANDOM 02/06/2022 9:38 PM COMMISS[employer] OFFICER [facility] Blood BLOOD SPECIMEN / Unknown Venipuncture / Unknown 02/04/2022 12:13 PM [employer] OFF[employer]ER 02/04/2022 12:15 PM [employer] Sharon Maldonado DO CHEMISTRY [facility] [address] [place] [address], [place] * ANTI HCV (02/04/2022 12:13 PM [employer] OFF[employer]ER) HEPATITIS C ANTIBODY Non-React toni Non-React toni 02/06/2022 9:23 PM COMMISS[employer]ED [employer] OFFICER [facility] Comment:Antibodies to HCV no t detected; does not exclude the possibility of exposure to HCV. Blood BLOOD SPECIMEN / Unknown Venipuncture / Unknown 02/04/2022 12:13 PM [employer] OFF[employer]ER 02/04/2022 12:15 PM COMMISS[employer] OFF[employer]ER Sharon Maldonado DO [facility] [address] [place] [address], [place] * ANTI HIV 1/2 [91241.0] (02/04/2022 12:13 PM COMM[employer] OFF[employer]) HIV-1/HIV-2 ANTIBODY Non-Reacti ve Non-Reacti ve 02/07/2022 10:09 AM COMMISSIONED POLICE OFFICER [facility] Comment:HIV-1 p24 and HIV-1/ HIV-2 Ab not detected. Blood BLOOD SPECIMEN / Unknown Venipuncture / Unknown 02/04/2022 12:13 PM COMMISS[employer]ED POLICE OFFICER 02/04/2022 12:15 PM COMMISS[employer]ED [employer]ICE OFFICER Sharon Maldonado DO [facility] [address] [place] [address], [place] from Last 3 Months or Most Recently Relevant to Health Maintenance Care Teams Mobile Product Manager Relationship Specialty Start Date End Date Pcp, No . PCP - General 01/12/21
--- NOTE | 2023-10-11 09:15 | MR_ITS ---
[facility] [address] [facility] [address] Phone:?[phone] Fax:?[phone] Referring Physician Information: Radhika Alexander [address] [facility] [address] Phone:?[phone] Fax:?[phone] Patient:Lashanda Mcghee D.O.B:?1965 Sex:?Male Phone:?[phone] [facility] MRN:?[id number] Exam Date:?10/11/2023 EXAM: MRI of the LEFT SHOULDER, without contrast CLINICAL: Male, 57 years old, with left shoulder pain. INDICATION: Evaluate for left shoulder internal derangement etiology. PRIOR SURGERY: None reported. PLAIN FILMS: 09/27/2023 radiographic series of the left shoulder. COMPARISONS: No prior MRIs available. TECHNICAL: Using a 1.5T MR scanner and a localizing shoulder surface coil: 3.0 mm?coronal obliques: PD, T2, STIR 3.0 mm?sagittal obliques: PD, T2 3.0 mm?axials: PD, T2 SEDATION: None. CONTRAST: None. IMPRESSION: 1. Findings in keeping with those which could be associated with any clinical evidence of relatively early stage acromiohumeral impingement/rotator cuff syndrome: - Mild subacromial bursal edema/bursitis. - Tendinosis with deep surface attenuation of the distal anterior subjacent without larger or full-thickness tear. - Acromiohumeral distance appears within normal limits although moderate inferior degenerative hypertrophy of the acromioclavicular joint does contribute encroachment upon cement space. 2. Mild to moderate tendinosis of the subscapularis tendon with some interstitial collagen collagen fiber microtearing and slender longitudinal fissures/split but without larger or full-thickness tear. 3. Findings suspect for early stage biceps contreras lesion including slight medial subluxation, mild towards moderate tendinosis/tendinopathy of its intra- articular segment, without more prominent displacement/dislocation or tear. 4. Mild glenohumeral joint degenerative changes including broad-based attenuation and some irregularity of the glenoid labrum without convincing defined linear labral tears and yet without convincing significant glenohumeral chondromalacia at this time. FINDINGS: Glenohumeral joint: Effusion/cyst: Small towards moderate left glenohumeral joint effusion. Ganglion cyst: None. Articular cartilage: Humeral head: Intact. Glenoid: Intact. Loose bodies: None demonstrable. Inferior glenohumeral ligament/axillary recess: Unremarkable. Labrum: Areas of expected degeneration, attenuation and some irregularity of the glenoid labrum without convincing more defined linear labral tears. Bones: Proximal humerus: Slight cortical irregularity and hyperostosis of the anterior greater tuberosity underlies distal insertional rotator cuff tendinosis detailed below. The proximal humerus is otherwise unremarkable. No humeral Hill-Sachs or reverse Hill-Sachs lesion. Glenoid: Intact. No osseous Bankart lesion. Coracoacromial arch: Acromion morphology: Type II acromion without defined subacromial spur/enthesophyte Os acromiale: None. Acromiohumeral space: Within normal limits at a minimum of 6 mm. Coracohumeral space: Within normal limits. Acromioclavicular joint: Joint: Moderate chronic degenerative hypertrophy of the acromioclavicular joint is accompanied by slight adjacent marrow edema. Associated moderate inferior osseous degenerative hypertrophy encroaches upon the subacromial space, abutting and mildly towards moderately encroaching upon the underlying anterior supraspinatus myotendinous junction (sagittal T2 series 8, images 16-18; coronal PD series 5, image 11). Ligaments: Intact coracoclavicular ligaments. Bursae: Subacromial-subdeltoid: Slender subacromial bursal edema (coronal STIR series 4, images 21-9). Subcoracoid: Unremarkable. Rotator cuff and muscles/tendons: Supraspinatus: Mild towards moderate deep surface into intrasubstance tendinosis with some deep surface attenuation/wear focally involving the inferior surface of anterior margin of the distal supraspinatus tendon, without full-thickness tear (coronal STIR series 4, images 12-10; sagittal T2 series 8, images 7 & 6) No tendon or myotendinous junction retraction. No muscle atrophy. Infraspinatus: Unremarkable. Teres minor: Unremarkable. Subscapularis: Moderate tendinosis including mild tendon thickening with expected interstitial collagen collagen fiber microtearing and slender longitudinal fissure/split of the subscapularis tendon without larger or full- thickness tear (axial images 15-20; sagittal images 15-8). No tendon or myotendinous junction retraction. No muscle atrophy. Deltoid: Unremarkable. Biceps tendon, long head: Mild towards moderate tendinosis/tendinopathy and thickening of the intra-articular segment of the long head of biceps tendon appears associated with slight medial subluxation superficial to the distal superior leading edge of the subscapularis tendon without more prominent placement/dislocation or tear/rupture (axial images 23-14; sagittal images 16- 8). Axilla: None. [facility] Electronically signed on 10/12/2023 8:52:00 AM by Sajan Rg M.D.
== END 2023-10-11 09:04 | disposition home or self-care (01) ==
LOC: MRI 09:04
PROVIDERS: PCP Student in an Organized Health Care Education/Training Program; Visit Provider Physician Assistant Surgical
DX: M25.512 Pain in left shoulder (principal); M75.52 Bursitis of left shoulder; M25.812 Other specified joint disorders, left shoulder; M19.012 Primary osteoarthritis, left shoulder; M24.819 Other specific joint derangements of unspecified shoulder, not elsewhere classified
CPT/HCPCS: 73221

== ENCOUNTER 2023-11-10 07:30 | Outpatient (RCR) | payer OTHER, SELFPAY ==
--- NOTE | 2023-04-28 13:22 | OT.OPOE ---
OT Outpatient Ortho Eval OT Outpatient Ortho Eval* Start: 04/19/23 10:57 Freq: Status: Active Protocol: Document 04/19/23 11:00 LUPE (Rec: 04/19/23 13:24 LUPE [id number]) E-signed By Ghazala Abdalla, OTR/L, CLT OT OP Ortho Eval Details Complexity Complexity Medium Insurance Information Insurance Information Workman's Comp Insurance Information Comments This is a work-related injury dated 03/14/2023, patient is employed at [employer] ( [employer]) in [place] MEDICAL DX: [id number] - Medial epicondylitis, left elbow M65.342 - Trigger finger, left ring finger Outpatient History/Precautions Current Condition/Medical Diagnosis Referring Provider Layton Roy PA-C Treatment Diagnosis L hand stiffness, L hand pain, L elbow pain Date of Onset Surgery date: 03/28/23 Other Precautions Been off the past 3 weeks ( since the trigger finger release surgery). 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 This is a Workmens Comp Case Other Conditions Active Problems Cubital tunnel syndrome on left (Acute) With ulnar nerve subluxation at the medial epicondyle, mildly positive Froment's sign , positive Tinel's involving small digit and ring digit left upper extremity. G56.22 - Lesion of ulnar nerve , left upper limb (ICD-10) Status post trigger finger release (Acute 03/28/22) Left ring finger flexor tendon sheath open release (A1 contreras) (Dr. Ribeiro) Z98.890 - Other specified postprocedural states (ICD-10) Encounter related to worker's compensation claim (Acute) Date of injury 03/14/2023 left ring finger Z02.6 - Encounter for examination for insurance purposes (ICD-10) Trigger finger, left ring finger (Acute) M65.342 - Trigger finger, left ring finger (ICD-10) Medial epicondylitis, left elbow (Acute) M77.02 - Medial epicondylitis, left elbow (ICD-10) Surgical History Status post trigger finger release (03/28/22) Z98.890 - Other specified postprocedural states (ICD-10) S/P left knee arthroscopy Z98.890 - Other specified postprocedural states (ICD-10) S/P ACL repair Z98.890 - Other specified postprocedural states (ICD-10) H/O hand surgery Z98.890 - Other specified postprocedural states (ICD-10) Medical/Functional History Medical History Reviewed Yes Prior Level of Function/Mobility Patient is Indep with self cares, IADLs, driving and 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 Ribeiro); also has a current episode of Medial epicondylitis, left elbow: Cubital tunnel syndrome on left: With ulnar nerve subluxation at the medial epicondyle, mildly positive Froment's sign, positive Tinel 's involving small digit and ring digit left upper extremity. Pain Assessment Pain Present Pain Present Pain Reported Location Left Hand Description Tightness,Throbbing,Cramping, Heaviness Intensity 8 Left Elbow Description Tightness,Radiating,Pressure, Sharp,Pinching,With Movement Intensity 6 Hand Pinch/Fabric And Accessories Estimator Strength Hand Right Fabric And Accessories Estimator Strength Position 1 (lbs) 110 Fabric And Accessories Estimator Strength Position 2 (lbs) 130 Lateral Pinch Strength (lbs) 30 Three Point Pinch (lbs) 30 Tip Pinch Strength (lbs) 20 Left Fabric And Accessories Estimator Strength Position 1 (lbs) 25 Fabric And Accessories Estimator Strength Position 2 (lbs) 20 Lateral Pinch Strength (lbs) 10 Three Point Pinch (lbs) 15 Tip Pinch Strength (lbs) 10 OT Objective Data Hand Hand Dominance Right Observations/Posture/Limb Appearance Objective Observations Left ring finger: Wound healthy, clean, dry, intact; no drainage or excessive erythema No erythematous streaking Moderate swelling and tenderness noted over A1 contreras region No catching, unable to make a full composite fist due to digit stiffness 2+ radial pulse, pink, warm digits with brisk capillary refill; intact dermatomes and myotomes distally including the radial, ulnar, and median nerve distributions Left elbow: No erythema, ecchymosis, swelling, fullness No gross deformity elbow Positive Tinel's medial epicondylar region over the ulnar nerve Ulnar nerve subluxation noted with elbow motion Active ROM 0-130 degrees; discomfort medial elbow with further flexion Cubital tunnel signs: - Weak pinch with thumb adduction loss - Froment sign mildly positive - no atrophy first dorsal interossei 2+ radial ulnar pulses, pink, warm digits with appropriate capillary fill; intact dermatomes and myotomes distally including radial, ulnar, and median nerve distributions Upper Extremity Special Tests Upper Extremity Special Tests Comments Comments Raw score (25 points) on The Upper Extremity Functional Index (UEFI) Raw score (92 points) on The Disabilities of the Arm, Shoulder and Hand (DASH) OT Problems Problems Problems Decreased Strength,Decreased Range of Motion,Decreased Dexterity,Pain,Decreased Coordination,Sensory Sensitivity,Lifting,Gripping, Pinching Other Problems Sleeping Patient Potential Good Assessment Assessment Assessment 57-year-old R hand dominant male patient had f/u Ortho apt on 04/08/23 (11 days post-op for left ring finger flexor tendon sheath open release (A1 contreras) - Date of surgery 03/28, patient was reporting stiffness through the digit. No further catching, but unable to make full composite fist, pain level 6/10. Also, same side (Left) medial elbow is painful with the medical dx of Medial Epicondylitis. Referral was made to skilled OT to Eval and treat for both conditions. Per the PAGilberto's note on the , Regarding his sign/symptoms of left cubital tunnel, in my opinion, this needs further workup with left upper extremity EMG/ NCS. We will get the referral process for this, and seek worker compensation prior authorization. In my opinion, it appears that this condition of left cubital tunnel was exacerbated due to his work. If this is not further addressed, could lead to muscle atrophy 1st dorsally interosseous. Patient is a great candidate for therapy, he was pleasant, alert, orientated, asked great questions in session, was an active listener to information presented to him and showed signs of motivation/ willingness to follow the presented protocol in POC. PLAN: Trigger finger release ( post op) protocol & medial epicondylitis protocol, use of Ultrasound, Ionto, Manual treatment (MIRIAM), development of a home exercise program that progresses as patient is able and pain symptoms decrease and patient education on biomechanics/ ergonometric/activity modifications to decrease pain and potential flare-ups. Occupational Therapy Treatment Plan - OP Potential Rehabilitation Potential Good Set Goals Goals Set with Patient Yes Goals Goals 1. Patient will verbalize 3 activity modifications to decrease abusive/overloading of the muscles, joints & tendons. 2. 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 3. Through activity participation in skilled therapy sessions, and consistency in performing a customized HEP, patient will improve capacity of tendons and muscles to manage load in order to have less pain with ADLs, work, leisure activities and IADLs. 4. Through use of a soft elbow brace for the L UE, patient will report sleeping >3 hour durations for improved sleep quality. 5. From EVAL raw score (92 points) on The Disabilities of the Arm, Shoulder and Hand ( DASH) patient will have a decreased score by >9 points in order to show significant change in UE function to better her ADL, IADL, work and leisure performance. 6. From EVAL raw score (25 points) on The Upper Extremity Functional Index (UEFI) patient will have a change in score by >9 points in order to show significant change in UE function to better her ADL, IADL and leisure performance. Target Date 6 weeks Treatment Plan Treatment Plan Evaluation,Edema Control, Iontophoresis,Joint Mobilization,Manual Therapy, Splinting,Ultrasound,Wound Care/Scar Management, Therapeutic Exercise,Self Care /Home Management,Education Expected Frequency 1-2x Week Expected Duration 8-10 Weeks Home Program Home Program Home Program Initiated Home Program Specifics Access Code: [email or web address] URL: [email or web address] Date: 04/19/2023 Prepared by: Ghazala Abdalla Exercises - Standing Ulnar Nerve Puxico - 1 x daily - 7 x weekly - 3 sets - 10 reps - Ulnar nerve towel sliders - 1 x daily - 7 x weekly - 3 sets - 10 reps - Ulnar Nerve Butterfly - 1 x daily - 7 x weekly - 3 sets - 10 reps - Ulnar Nerve Mobilization - Low Level - 1 x daily - 7 x weekly - 3 sets - 10 reps - Ulnar Nerve Flossing - 1 x daily - 7 x weekly - 3 sets - 10 reps - Ulnar Nerve Flossing - 1 x daily - 7 x weekly - 3 sets - 10 reps - Seated Finger MP Extension AROM with Blocking - 1 x daily - 7 x weekly - 3 sets - 10 reps - Seated Finger DIP Extension AROM - 1 x daily - 7 x weekly - 3 sets - 10 reps - Wrist Tendon Gliding - 1 x daily - 7 x weekly - 3 sets - 10 reps - Finger AROM FDS tendon gliding - 1 x daily - 7 x weekly - 3 sets - 10 reps - Wrist Prayer Stretch - 1 x daily - 7 x weekly - 3 sets - 10 reps Recertification Information Recertification Information Initial Certification Date 04/19/23 Recertification Due Date 07/18/23 Click To Default 'Per treatment plan' Per treatment plan Continued Plan of Care and Interventions Per treatment plan Provider Signature Shows Agreement With POC & Medical Necessity Physician Comment/Change Comment or Changes Physician NPI Number #
--- NOTE | 2023-07-04 16:06 | OT.OPODN ---
OT Outpatient Ortho Daily Note OT Outpatient Ortho Daily Note* Start: 04/19/23 10:57 Freq: Status: Active Protocol: Document 07/04/23 12:57 LUPE (Rec: 07/04/23 16:05 LUPE [id number]) E-signed By Ghazala Abdalla, OTR/L, CLT Type of Note Type of Note Type of Note Daily Note,Recert/Progress Note Visit Number [id number] Comments RECERT NOTE/ 07/04/23 NEEDS SIGNITURE, patient is s/ p surgery New Medical Dx (s/p surgery): eft medial elbow open flexor pronator tenotomy (date of surgery 06/15/2023, Dr. Ribeiro) - work related Z98.890 - Other specified postprocedural states (ICD-10) Status post decompression of ulnar nerve at elbow (Acute ) left ulnar nerve decompression and anterior subcutaneous transposition ( date of surgery 06/15/2023, Dr. Ribeiro) - work related Z98.890 - Other specified postprocedural states (ICD-10) Insurance Information Insurance Information Workman's Comp Insurance Information Comments This is a work-related injury dated 03/14/2023, patient is employed at [employer] ( [employer]) in [place] New Medical Dx (s/p surgery): eft medial elbow open flexor pronator tenotomy (date of surgery 06/15/2023, Dr. Ribeiro) - work related Z98.890 - Other specified postprocedural states (ICD-10) Status post decompression of ulnar nerve at elbow (Acute ) left ulnar nerve decompression and anterior subcutaneous transposition ( date of surgery 06/15/2023, Dr. Ribeiro) - work related Z98.890 - Other specified postprocedural states (ICD-10) MEDICAL DX: M77.02 - Medial epicondylitis, left elbow M65.342 - Trigger finger, left ring finger Outpatient History/Precautions Current Condition/Medical Diagnosis Referring Provider Layton Roy PA-C Treatment Diagnosis L hand stiffness, L hand pain, L elbow pain Date of Onset Surgery date: 03/28/23 Other Precautions From ortho apt on 05/24/23: I will provide the patient with a Report of Work Ability form with the restrictions of return to work on May 29, 2023 with restrictions of left upper extremity lift/carry less than 25lbs; push/pull less than 30lbs. Please see the Report of Work Ability form for additional details. 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 This is a Workmens Comp Case UPCOMING SURGERY: Surgery will be for left elbow ulnar nerve decompression and transposition, medial tenotomy vs. tendon repair. Other Conditions Active Problems Cubital tunnel syndrome on left (Acute) With ulnar nerve subluxation at the medial epicondyle, mildly positive Froment's sign , positive Tinel's involving small digit and ring digit left upper extremity. G56.22 - Lesion of ulnar nerve , left upper limb (ICD-10) Status post trigger finger release (Acute 03/28/22) Left ring finger flexor tendon sheath open release (A1 contreras) (Dr. Ribeiro) Z98.890 - Other specified postprocedural states (ICD-10) Encounter related to worker's compensation claim (Acute) Date of injury 03/14/2023 left ring finger Z02.6 - Encounter for examination for insurance purposes (ICD-10) Trigger finger, left ring finger (Acute) M65.342 - Trigger finger, left ring finger (ICD-10) Medial epicondylitis, left elbow (Acute) M77.02 - Medial epicondylitis, left elbow (ICD-10) Surgical History Status post trigger finger release (03/28/22) Z98.890 - Other specified postprocedural states (ICD-10) S/P left knee arthroscopy Z98.890 - Other specified postprocedural states (ICD-10) S/P ACL repair Z98.890 - Other specified postprocedural states (ICD-10) H/O hand surgery Z98.890 - Other specified postprocedural states (ICD-10) Medical/Functional History Medical History Reviewed Yes Prior Level of Function/Mobility Patient is Indep with self cares, IADLs, driving and 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 *Patient underwent surgery on 06/15/23 ( Left Ulnar nerve decompression and anterior subcutaneous transposition; L medial elbow open flexor pronator tenotomy by Dr. Rod Ribeiro Pain Assessment Pain Present Pain Present Pain Reported Location Left Hand Description Tightness,Throbbing,Cramping, Heaviness Intensity 3 Left Elbow Description Tightness,Radiating,Pressure, Sharp,Pinching,With Movement Intensity 6 OT OP Daily Ortho Note/Assessment Manual Therapy Manual Therapy Minutes (minutes) 20 Manual Therapy Comments Scar tissue massage (L hand- tran side) to mobilize collagen fibers and reduce adhesions to improve fascial gliding and joint mobility along with stretch and hold techniques were applied to increase joint ranges. Neutral positioning with anatomical joint alignment was attained with patient reporting 2/10 pain post treatment session. Instrument-assisted soft tissue mobilization (IASTM) to treat/control edema, increase ROM for functional use and decrease pain for improved musculoskeletal function. Benefits of manual therapy & tissue mobilization includes alignment of fibroblasts and myofibroblasts, restoring gliding between layers of tissue, increase healing time & neurophysiological benefit due to rich proprioceptive input of fascia. Intent for manual therapy is to stimulate hyaluronic acid production and decrease viscosity, stimulate mechanoreceptors & restore gliding/sliding between layer. Ultrasound Ultrasound Minutes (minutes) 9 Ultrasound Location & Joint Position 9 mins to the palm of the L hand (superficial)-continuous Ultrasound Frequency & Mode 3 MHz Continuous Intensity (w/cm2) 1.4 Ultrasound Comments Ultrasound used for reducing edema/increasing collagen tissue temp prior to stretching and manual therapy to allow for decreased joint stiffness and increased AROM in order to have less pain with functional use of the L UE Total Occupational Therapy Time Occupational Therapy Minutes 29 Home Program Home Program Home Program Compliant Home Program Specifics Access Code: [email or web address] URL: [email or web address] Date: 04/19/2023 Prepared by: Ghazala Abdalla Exercises - Standing Ulnar Nerve Van [place]his - 1 x daily - 7 x weekly - 3 sets - 10 reps - Ulnar nerve towel sliders - 1 x daily - 7 x weekly - 3 sets - 10 reps - Ulnar Nerve Butterfly - 1 x daily - 7 x weekly - 3 sets - 10 reps - Ulnar Nerve Mobilization - Low Level - 1 x daily - 7 x weekly - 3 sets - 10 reps - Ulnar Nerve Flossing - 1 x daily - 7 x weekly - 3 sets - 10 reps - Ulnar Nerve Flossing - 1 x daily - 7 x weekly - 3 sets - 10 reps - Seated Finger MP Extension AROM with Blocking - 1 x daily - 7 x weekly - 3 sets - 10 reps - Seated Finger DIP Extension AROM - 1 x daily - 7 x weekly - 3 sets - 10 reps - Wrist Tendon Gliding - 1 x daily - 7 x weekly - 3 sets - 10 reps - Finger AROM FDS tendon gliding - 1 x daily - 7 x weekly - 3 sets - 10 reps - Wrist Prayer Stretch - 1 x daily - 7 x weekly - 3 sets - 10 reps Range of Motion and Strength Elbow/Forearm Range of Motion and Strength Elbow/Forearm Range of Motion and 07/04/23: L elbow AROM 8-115 Strength degrees (with effort 5-125 degrees) Left Elbow: No erythema, induration or other cutaneous changes Digits pink, warm, brisk cap refill Incision appears healthy, no signs of infection, no redness . Medial edema noted around the L elbow and proximal to joint Hypersensitivity along the incision Hand/Finger/Thumb Range of Motion and Strength Hand/Finger/Thumb Range of Motion and Left hand: Palpable scar Strength tissue at the A1 contreras Full composite fist with discomfort No catching or locking with extension Goniometric Comments Goniometric Comments Goniometric Comments 07/04/23: L elbow AROM 8-115 degrees (with effort 5-125 degrees) Hand Pinch/Etl Programmer Strength Hand Right Etl Programmer Strength Position 1 (lbs) 110 Etl Programmer Strength Position 2 (lbs) 130 Lateral Pinch Strength (lbs) 30 Three Point Pinch (lbs) 30 Tip Pinch Strength (lbs) 20 Left Etl Programmer Strength Position 1 (lbs) 25 Etl Programmer Strength Position 2 (lbs) 30 Lateral Pinch Strength (lbs) 14 Three Point Pinch (lbs) 11 Tip Pinch Strength (lbs) 10 Comments Comments *Patient underwent surgery on 06/15/23 (Left Ulnar nerve decompression and anterior subcutaneous transposition; L medial elbow open flexor pronator tenotomy by Dr. Rod Ribeiro OT Objective Data Hand Hand Dominance Right Observations/Posture/Limb Appearance Objective Observations Left ring finger: Wound healthy, clean, dry, intact; no drainage or excessive erythema No erythematous streaking Moderate swelling and tenderness noted over A1 contreras region No catching, unable to make a full composite fist due to digit stiffness 2+ radial pulse, pink, warm digits with brisk capillary refill; intact dermatomes and myotomes distally including the radial, ulnar, and median nerve distributions Left elbow: No erythema, ecchymosis, swelling, fullness No gross deformity elbow Positive Tinel's medial epicondylar region over the ulnar nerve Ulnar nerve subluxation noted with elbow motion Active ROM 0-130 degrees; discomfort medial elbow with further flexion Cubital tunnel signs: - Weak pinch with thumb adduction loss - Froment sign mildly positive - no atrophy first dorsal interossei Sensation Sensation Assessment Summary Comments 2+ radial ulnar pulses, pink, warm digits with appropriate capillary fill; intact dermatomes and myotomes distally including radial, ulnar, and median nerve distributions Additional Information Objective Additional Information Ortho f/u with provider was on 07/01/23: (1) Encounter related to worker's compensation claim: Problem Comment: Date of injury 03/14/2023 (2) Hx of elbow surgery: Problem Comment: left medial elbow open flexor pronator tenotomy (date of surgery 06/15/2023, Dr. Ribeiro) - work related (3) Status post decompression of ulnar nerve at elbow: Problem Comment: left ulnar nerve decompression and anterior subcutaneous transposition (date of surgery 06/15/2023, Dr. Ribeiro) - work related Plan I communicated the findings of surgery in that his ulnar nerve was subluxing during elbow flexion. Additionally, the flexor pronator mass tendon origin was significantly pathologic/ tendinopathic. While he is safe to use the left upper extremity for basic daily activities it will be likely multiple months before he returns to work in a full duty capacity. Yes, and vision that he will be able to return to work in a light duty capacity sooner, but whether his work has such a role for him is up to them. I encouraged him to work on his ROM as he is able. Each stretch should be held for 45 seconds. There should be a 3-4 out of 10 with stretching. I will provide the patient with an occupational therapy referral today to help engage some muscles and to restore range of motion. I will provide the patient with a Report of Work Ability form with the restrictions of unable to work. Please see the Report of Work Ability form for additional details. I would like to see the patient back in 4 weeks for clinical reassessment, likely progress to light duty at that time. Upper Extremity Special Tests Median Nerve-Carpal Tunnel Wrist Tinel Test left Ulnar Nerve Froment's Sign Positive Left Upper Extremity Special Tests Comments Comments Raw score (25 points) on The Upper Extremity Functional Index (UEFI) Raw score (92 points) on The Disabilities of the Arm, Shoulder and Hand (DASH) OT Problems Problems Problems Decreased Strength,Decreased Range of Motion,Decreased Dexterity,Pain,Decreased Coordination,Sensory Sensitivity,Lifting,Gripping, Pinching Other Problems Sleeping Patient Potential Good Assessment Assessment Assessment 07/04/23: Patient is returning back to the clinic after surgery on the L UE. Patient was last seen in the clinic . Patient underwent surgery on 06/15/23 (Left Ulnar nerve decompression and anterior subcutaneous transposition; L medial elbow open flexor pronator tenotomy by Dr. Rod Ribeiro 57-year-old R hand dominant male patient had f/u Ortho apt on 04/08/23 (11 days post-op for left ring finger flexor tendon sheath open release (A1 contreras) - Date of surgery 03/28, patient was reporting stiffness through the digit. No further catching, but unable to make full composite fist, pain level 6/10. Also, same side (Left) medial elbow is painful with the medical dx of Medial Epicondylitis. Referral was made to skilled OT to Eval and treat for both conditions. Per the PAGilberto's note on the , Regarding his sign/symptoms of left cubital tunnel, in my opinion, this needs further workup with left upper extremity EMG/ NCS. We will get the referral process for this, and seek worker compensation prior authorization. In my opinion, it appears that this condition of left cubital tunnel was exacerbated due to his work. If this is not further addressed, could lead to muscle atrophy 1st dorsally interosseous. Patient is a great candidate for therapy, he was pleasant, alert, orientated, asked great questions in session, was an active listener to information presented to him and showed signs of motivation/ willingness to follow the presented protocol in POC. PLAN: Trigger finger release ( post op) protocol & medial epicondylitis protocol, use of Ultrasound, Ionto, Manual treatment (MIRIAM), development of a home exercise program that progresses as patient is able and pain symptoms decrease and patient education on biomechanics/ ergonometric/activity modifications to decrease pain and potential flare-ups. Occupational Therapy Treatment Plan - OP Potential Rehabilitation Potential Good Set Goals Goals Set with Patient Yes Goals Goals 1. Patient will verbalize 3 activity modifications to decrease abusive/overloading of the muscles, joints & tendons. -GOAL MET 05/11/23 2. 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 -progressing, continue 3. Through activity participation in skilled therapy sessions, and consistency in performing a customized HEP, patient will improve capacity of tendons and muscles to manage load in order to have less pain with ADLs, work, leisure activities and IADLs. -progressing, continue 4. Through use of a soft elbow brace for the L UE, patient will report sleeping >3 hour durations for improved sleep quality. -progressing, continue 5. From EVAL raw score (92 points) on The Disabilities of the Arm, Shoulder and Hand ( DASH) patient will have a decreased score by >9 points in order to show significant change in UE function to better her ADL, IADL, work and leisure performance. - progressing, continue 6. From EVAL raw score (25 points) on The Upper Extremity Functional Index (UEFI) patient will have a change in score by >9 points in order to show significant change in UE function to better her ADL, IADL and leisure performance. --progressing, continue Target Date 6 weeks Treatment Plan Treatment Plan Evaluation,Edema Control, Iontophoresis,Joint Mobilization,Manual Therapy, Splinting,Ultrasound,Wound Care/Scar Management, Therapeutic Exercise,Self Care /Home Management,Education Expected Frequency 1-2x Week Expected Duration 8-10 Weeks Occupational Therapy Billing Units Treatment Minutes Untimed Treatment Minutes 30 Timed Treatment Minutes 29 Total Treatment Minutes 59 Billing Units Manual Therapy 1 Ultrasound 1 Recertification Information Recertification Information Initial Certification Date 04/19/23 Recertification Start Date 07/04/23 Recertification Due Date 10/04/23 Reasons to Continue Skilled Therapy 07/04/23: Patient is returning back to the clinic after surgery on the L UE. Patient was last seen in the clinic . Patient underwent surgery on 06/15/23 (Left Ulnar nerve decompression and anterior subcutaneous transposition; L medial elbow open flexor pronator tenotomy by Dr. Rod Ribeiro Rehabilitation Potential Good Click To Default 'Per treatment plan' Per treatment plan Continued Plan of Care and Interventions Per treatment plan Provider Signature Shows Agreement With POC & Medical Necessity
--- NOTE | 2023-09-29 11:01 | OT.OPODN ---
OT Outpatient Ortho Daily Note OT Outpatient Ortho Daily Note* Start: 04/19/23 10:57 Freq: Status: Active Protocol: Document 09/29/23 09:31 LUPE (Rec: 09/29/23 10:50 [email or web address] [id number]) E-signed By Ghazala Abdalla, OTR/L, CLT Type of Note Type of Note Type of Note Daily Note,Recert/Progress Note Visit Number [id number] Insurance Authorized Visits until 11/01/23 Comments INSURANCE UPDATE FROM 08/13/23: Maksim Mcghee (1965) work comp insurance approved 2x per week for 8 weeks, up to his doctor's appointment (11/01/23) , she will then want updated notes and new md order to continue service. RECERT NOTE completed on , patient is now s/p surgery New Medical Dx (s/p surgery): Left medial elbow open flexor pronator tenotomy (date of surgery 06/15/2023, Dr. Ribeiro) - work related Z98.890 - Other specified postprocedural states (ICD-10) Status post decompression of ulnar nerve at elbow (Acute ) left ulnar nerve decompression and anterior subcutaneous transposition ( date of surgery 06/15/2023, Dr. Ribeiro) - work related Z98.890 - Other specified postprocedural states (ICD-10) Insurance Information Insurance Information Workman's Comp Insurance Information Comments This is a work-related injury dated 03/14/2023, patient is employed at [employer] ( [employer]) in [place] New Medical Dx (s/p surgery): Left medial elbow open flexor pronator tenotomy (date of surgery 06/15/2023, Dr. Ribeiro) - work related Z98.890 - Other specified postprocedural states (ICD-10) Status post decompression of ulnar nerve at elbow (Acute ) left ulnar nerve decompression and anterior subcutaneous transposition ( date of surgery 06/15/2023, Dr. Ribeiro) - work related Z98.890 - Other specified postprocedural states (ICD-10) MEDICAL DX: M77.02 - Medial epicondylitis, left elbow M65.342 - Trigger finger, left ring finger Outpatient History/Precautions Current Condition/Medical Diagnosis Referring Provider Layton Roy PA-C Medical Diagnoses Hx of elbow surgery (Acute ) left medial elbow open flexor pronator tenotomy (date of surgery 06/15/2023, Dr. Ribeiro) - work related Z98.890 - Other specified postprocedural states (ICD-10) Status post decompression of ulnar nerve at elbow (Acute ) left ulnar nerve decompression and anterior subcutaneous transposition (date of surgery 06/15/2023, Dr. Ribeiro) - work related Encounter related to worker's compensation claim (Acute) Date of injury 03/14/2023 Treatment Diagnosis L hand stiffness, L hand pain, M25.522- L elbow pain localized edema, R60.0 Date of Onset Date of injury 03/14/2023 Other Precautions *NEW: from apt. on 09/06/23: restrictions of left upper extremity lift/carry less than or equal to 10lbs, push/pull less than or equal to 10lbs, survey manager/squeeze less than or equal to 5lbs. Please see the Report of Work Ability form for additional details. -Patient is returning to work on Tuesday, September 12, 2023. 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 This is a Workmans Comp Case Other Conditions Active Problems Cubital tunnel syndrome on left (Acute) With ulnar nerve subluxation at the medial epicondyle, mildly positive Froment's sign , positive Tinel's involving small digit and ring digit left upper extremity. G56.22 - Lesion of ulnar nerve , left upper limb (ICD-10) Status post trigger finger release (Acute 03/28/22) Left ring finger flexor tendon sheath open release (A1 contreras) (Dr. Ribeiro) Z98.890 - Other specified postprocedural states (ICD-10) Encounter related to worker's compensation claim (Acute) Date of injury 03/14/2023 left ring finger Z02.6 - Encounter for examination for insurance purposes (ICD-10) Trigger finger, left ring finger (Acute) M65.342 - Trigger finger, left ring finger (ICD-10) Medial epicondylitis, left elbow (Acute) M77.02 - Medial epicondylitis, left elbow (ICD-10) Surgical History Status post trigger finger release (03/28/22) Z98.890 - Other specified postprocedural states (ICD-10) S/P left knee arthroscopy Z98.890 - Other specified postprocedural states (ICD-10) S/P ACL repair Z98.890 - Other specified postprocedural states (ICD-10) H/O hand surgery Z98.890 - Other specified postprocedural states (ICD-10) Medical/Functional History Medical History Reviewed Yes Prior Level of Function/Mobility Patient is Indep with self cares, IADLs, driving and 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 Patient is getting scheduled for left shoulder non-contrast MRI to assess internal derangement on 10/11/23 at [facility]. 09/27/23: Patient arrives to the clinic this AM directly after leaving the Ortho clinic. Therapist has reviewed this note from MARCY but it was still in draft and incomplete. Provider has placed patient on restrictions , he is not to work right now. All the treatment focus today was on the L shoulder. 09/21/23: Patient states that he saw his PCP on Tuesday and was recommended to go back to Ortho (in regards to the L shoulder pain). Patient has an apt with Dr. Ribeiro this Tuesday. His L shoulder is 8/10 pain today. 09/19/23: Patient has not been able to do the majority of his L UE HEP as his shoulder pain in this L UE has been terrible (6/10). Patient plans on seeing his PCP later this afternoon to discuss treatment options and is hopeful to get a proper diagnosis to figure out what is wrong. 09/14/23: Patient worked yesterday 6 hours and went home and napped for 2 hours. He is surprised by how fatigued he gets. Today he is off work and can take it easy. Reviewed stretches using the foam roller (chest expansion, good stretch for the L Pect Minor that is tight/Shoulder). Explained that he should hold his stretches for 45 seconds and use an ice massage afterwards. 09/12/23: Patient returned to work today (worked for 4.5 hours) but he is on restrictions. (Restrictions in place: left upper extremity lift/carry less than or equal to 10lbs, push/pull less than or equal to 10lbs, survey manager/ squeeze less than or equal to 5lbs.) Patient states that he was able to follow this restrictions and was working in different departments today . His biggest complaint today was the L shoulder, 8/10 pain, has full AROM, provider thought it was an impingement. Recommending patient do some deep massage work and stretching multiple times per day for this. 09/07/23: Patient had f/u apt yesterday with Ortho. Provider wrote: Will provide the patient with a Report of Work Ability form with the restrictions of left upper extremity lift/carry less than or equal to 10lbs, push/pull less than or equal to 10lbs, survey manager/squeeze less than or equal to 5lbs. Please see the Report of Work Ability form for additional details. Patient is returning to work on August. 08/10/23: Upgraded HEP today, gave patient a Red Theraband to use for AROM/light resistance strengthening. Pain Assessment Pain Pain Yes Pain Comments 2/10 L medial elbow as well at directly over the joint. L shoulder is 8/10-worse than 09/19/23 when pain at the shoulder was rated at 6/10 OT OP Daily Ortho Note/Assessment Therapeutic Exercise Therapeutic Exercise Minutes (minutes) 33 Therapeutic Exercise Comments L UE: Pendulums of the L Shoulder ( patient did not have any pain with this) clockwise and counter clock kay, forward and backwards, horizontal for a total of 5 mins, asked him to do this a minimum of 4x/ daily. Cane Exercise ? Up & Back & ? External Rotation (Out) Wall Slides - Forward/UP; horizontal, circles, figure 8' s & diagonal directions Shoulder Stretch against the body, Chest Stretch in Doorway , Inferior Capsule Stretch, Sleeper Stretch and Towel Stretch PROM of the L shoulder (to tolerance, tender at end ranges) patient having muscle guarding and unable to get to end ranges due to pain ( anterior shoulder). Gave patient a handout for over the door pulleys, provided a demonstration of how patient should be doing with these. 1. Forward Raise-in standing ( narrow V and wide V position) 2. Forward Raise-while seated, facing towards the door 3. Forward Raise HIGH, seated, facing away from the door 4. Hand behind the back - external rotation to tolerance 5. Outward rotation Ultrasound Ultrasound Minutes (minutes) 9 Ultrasound Location & Joint Position Anterior L shoulder Ultrasound Frequency & Mode 1 MHz Continuous Intensity (w/cm2) 1.7 Ultrasound Comments Ultrasound applied to L ( anterior) shoulder for 9 minutes for reducing edema/ increasing collagen tissue temp prior to stretching and manual therapy to allow for decreased joint stiffness and increased AROM in order to have less pain with functional use of the L UE Total Occupational Therapy Time Occupational Therapy Minutes 42 Home Program Home Program Home Program Revised,Compliant Home Program Specifics Exercises - Supine Elbow Flexion Extension AROM - 1 x daily - 7 x weekly - 3 sets - 10 reps - Supine Elbow Flexion Extension AROM - 1 x daily - 7 x weekly - 3 sets - 10 reps - Putty Squeezes - 1 x daily - 7 x weekly - 3 sets - 10 reps - Shoulder Extension with Resistance - 1 x daily - 7 x weekly - 3 sets - 10 reps - Standing Shoulder Horizontal Abduction with Resistance - 1 x daily - 7 x weekly - 3 sets - 10 reps - Standing Shoulder Diagonal Horizontal Abduction 60/120 Degrees with Resistance - 1 x daily - 7 x weekly - 3 sets - 10 reps - Shoulder PNF D2 with Resistance - 1 x daily - 7 x weekly - 3 sets - 10 reps - Serratus Activation at Wall with Foam Roll and Resistance Band - 1 x daily - 7 x weekly - 3 sets - 10 reps Added on 09/27/23: Pendulums of the L Shoulder ( patient did not have any pain with this) clockwise and counterclockwise, forward and backwards, horizontal for a total of 5 mins, asked him to do this a minimum of 4x/daily. Cane Exercise ? Up & Back & ? External Rotation (Out) Wall Slides - Forward/UP; horizontal, circles, figure 8' s & diagonal directions Shoulder Stretch against the body, Chest Stretch in Doorway , Inferior Capsule Stretch, Sleeper Stretch and Towel Stretch PROM of the L shoulder (to tolerance, tender at end ranges) patient having muscle guarding and unable to get to end ranges due to pain ( anterior shoulder). Gave patient a handout for over the door pulleys, provided a demonstration of how patient should be doing with these. 1. Forward Raise-in standing ( narrow V and wide V position) 2. Forward Raise-while seated, facing towards the door 3. Forward Raise HIGH, seated, facing away from the door 4. Hand behind the back - external rotation to tolerance 5. Outward rotation Range of Motion and Strength Shoulder Range of Motion and Strength Shoulder Range of Motion and Strength L UE: Nontender posterior shoulder or AC joint AROM: 170/170/50/belt line ( contralateral side 180/180/70/ T6) PROM: 180/180; at 90 degrees abduction ER/IR 15/10 - not able perform affective external or internal rotation due to significant pain per patient Subscapularis specific testing : Belly press, bear-hug, lift- off all positive with pain and weakness Neer/Hastings impingement testing positive Empty can 4/5; Speed's test unable to perform; External rotation 4/5; Internal rotation 4/5 (internal rotation with biceps pain to the medial elbow) Elbow/Forearm Range of Motion and Strength Elbow/Forearm Range of Motion and 09/19/23: L elbow AROM is 2-150 Strength degrees (active) 08/04/23: L elbow AROM is 4-136 degrees 07/04/23: L elbow AROM 8-115 degrees (with effort 5-125 degrees) Hand/Finger/Thumb Range of Motion and Strength Hand/Finger/Thumb Range of Motion and Left hand: Palpable scar Strength tissue at the A1 contreras Full composite fist with discomfort No catching or locking with extension Hand Pinch/Cube Cutter Strength Comments Comments *Patient underwent surgery on 06/15/23 (Left Ulnar nerve decompression and anterior subcutaneous transposition; L medial elbow open flexor pronator tenotomy by Dr. Rod Ribeiro OT Objective Data Hand Hand Dominance Right Observations/Posture/Limb Appearance Objective Observations Left ring finger: Wound healthy, clean, dry, intact; no drainage or excessive erythema No erythematous streaking Moderate swelling and tenderness noted over A1 contreras region No catching, unable to make a full composite fist due to digit stiffness 2+ radial pulse, pink, warm digits with brisk capillary refill; intact dermatomes and myotomes distally including the radial, ulnar, and median nerve distributions Left elbow: No erythema, ecchymosis, swelling, fullness No gross deformity elbow Positive Tinel's medial epicondylar region over the ulnar nerve Ulnar nerve subluxation noted with elbow motion Active ROM 0-130 degrees; discomfort medial elbow with further flexion Cubital tunnel signs: - Weak pinch with thumb adduction loss - Froment sign mildly positive - no atrophy first dorsal interossei Skin/Wounds/Edema Comments Left Elbow: Medial edema noted around the L elbow and proximal to joint Hypersensitivity along the incision Sensation Sensation Assessment Summary Comments 2+ radial ulnar pulses, pink, warm digits with appropriate capillary fill; intact dermatomes and myotomes distally including radial, ulnar, and median nerve distributions Additional Information Objective Additional Information Ortho f/u with provider was on 07/01/23: (1) Encounter related to worker's compensation claim: Problem Comment: Date of injury 03/14/2023 (2) Hx of elbow surgery: Problem Comment: left medial elbow open flexor pronator tenotomy (date of surgery 06/15/2023, Dr. Ribeiro) - work related (3) Status post decompression of ulnar nerve at elbow: Problem Comment: left ulnar nerve decompression and anterior subcutaneous transposition (date of surgery 06/15/2023, Dr. Ribeiro) - work related Plan I communicated the findings of surgery in that his ulnar nerve was subluxing during elbow flexion. Additionally, the flexor pronator mass tendon origin was significantly pathologic/ tendinopathic. While he is safe to use the left upper extremity for basic daily activities it will be likely multiple months before he returns to work in a full duty capacity. Yes, and vision that he will be able to return to work in a light duty capacity sooner, but whether his work has such a role for him is up to them. I encouraged him to work on his ROM as he is able. Each stretch should be held for 45 seconds. There should be a 3-4 out of 10 with stretching. I will provide the patient with an occupational therapy referral today to help engage some muscles and to restore range of motion. I will provide the patient with a Report of Work Ability form with the restrictions of unable to work. Please see the Report of Work Ability form for additional details. I would like to see the patient back in 4 weeks for clinical reassessment, likely progress to light duty at that time. Upper Extremity Special Tests Upper Extremity Special Tests Comments Comments 09/27/23 Imagining report for L shoulder copied from chart. Imaging: Three views left shoulder ordered and preliminarily reviewed today. Images show concentrically reduced glenohumeral joint without evidence of significant glenohumeral joint osteoarthrosis. Small osteophyte off the inferior glenoid. AC joint not well visualized on these images. Type 2 acromion. No calcific changes in the shoulder. No fractures or interosseous pathology. OT Problems Problems Problems Decreased Strength,Decreased Range of Motion,Decreased Dexterity,Pain,Decreased Coordination,Sensory Sensitivity,Lifting,Gripping, Pinching Other Problems Sleeping Patient Potential Good Assessment Assessment Assessment Patient's chief compliant today is the shoulder pain in the L UE, pain level today was 8/10, due to the shoulder pain, it is preventing progress with his L elbow HEP. Any movement of the L UE increasing pain. Patient saw Ortho provider on Tuesday, 09/26 and is scheduled to have an MRI of his L shoulder: non- contrast MRI to assess internal derangement on at [facility]. Occupational Therapy Treatment Plan - OP Potential Rehabilitation Potential Good Set Goals Goals Set with Patient Yes Goals Goals 1. Patient will verbalize 3 activity modifications to decrease abusive/overloading of the muscles, joints & tendons. -GOAL MET 05/11/23 2. Pt will demonstrate pain- free survey manager and pinch strength comparable to the (R) uninvolved side in order to improve functional grasp, hold , reach, and lifting ability needed to complete self-care, leisure tasks, and work activities. -progressing, continue 3. Through activity participation in skilled therapy sessions, and consistency in performing a customized HEP, patient will improve capacity of tendons and muscles to manage load in order to have less pain with ADLs, work, leisure activities and IADLs. -progressing, continue 4. Through use of a soft elbow brace for the L UE, patient will report sleeping >3 hour durations for improved sleep quality. -GOAL MET 09/19/23 5. From EVAL raw score (92 points) on The Disabilities of the Arm, Shoulder and Hand ( DASH) patient will have a decreased score by >9 points in order to show significant change in UE function to better her ADL, IADL, work and leisure performance. - progressing, continue 6. From EVAL raw score (25 points) on The Upper Extremity Functional Index (UEFI) patient will have a change in score by >9 points in order to show significant change in UE function to better her ADL, IADL and leisure performance. --progressing, continue Target Date 6 weeks Treatment Plan Treatment Plan Evaluation,Edema Control, Iontophoresis,Joint Mobilization,Manual Therapy, Splinting,Ultrasound,Wound Care/Scar Management, Therapeutic Exercise,Self Care /Home Management,Education Expected Frequency 1-2x Week Expected Duration 8-10 Weeks Occupational Therapy Billing Units Treatment Minutes Timed Treatment Minutes 42 Total Treatment Minutes 42 Billing Units Manual Therapy 1 Therapeutic Exercise 2 Certification Statement Certification Statement I Certify That: Therapy Services Provided, Therapy Plan Established, Therapy Plan Reviewed Recertification Information Recertification Information Initial Certification Date 04/19/23 Recertification Start Date 09/29/23 Recertification Due Date 11/01/23 Reasons to Continue Skilled Therapy Patient has a new onset of L shoulder pain. MRI is scheduled 10/11/23 to diagnosis cause/problem. Rehabilitation Potential Patient was making excellent progress with L hand/elbow ( prior to the onset of L shoulder pain). Click To Default 'Per treatment plan' Per treatment plan Continued Plan of Care and Interventions Per treatment plan Provider Signature Required Yes Provider Signature Shows Agreement With POC & Medical Necessity Physician NPI Number Write NPI# Here Physician Comment/Change Comment or Changes Physician Signature & Date Requested Please Sign/Date Here
--- NOTE | 2023-11-10 09:00 | PT.OPDNX ---
[facility] Daily Note [facility] Daily Note Start: 11/01/23 13:43 Freq: Status: Active Protocol: Document 11/10/23 07:21 DAX (Rec: 11/10/23 09:00 DAX [id number]) E-signed By Priti Koenig, PT PT OP Daily Progress Note Visit Information Note Type Daily Note Visit Number 2 Insurance Information Insurance Name Workman's Comp Medical Diagnosis Left shoulder pain Adhesive Capsulitis Treating Diagnosis Decreased left shoulder ROM Left shoulder deconditioning/ weakness Referring MD Layton Roy, MARCY Subjective Subjective PATIENT RETURNS TODAY REPORTING HAVING A DREAM WHERE HE WAS QUICKLY CATCHING A BALL TO THE SIDE AND ABRUPTLY REACHED OUT EXTENDING HIS LEFT ARM TO THE SIDE AND AWOKE IMMEDIATELY. HE REPORTS, I REALLY SCREWED UP B/C IT MADE EVERYTHING WORSE. I ICED AND TOOK SOME CELEBREX. I WAS BARELY ABLE TO TAKE A SHOWER. . PATIENT DEMONSTRATED THE MOTION WITH HIS LEFT UE. Pain Comments 15/10 Therapeutic Exercise Therapeutic Exercise Minutes (minutes) 35 Therapeutic Exercise: To Restore RENEE X 4' Functional Status PENDULUM X 20 (FLEX/EXT, ABD/ ADD, [place] L/R) STDG AAROM WITH DOWEL SCAPTION AND FLEX 10EA SHOULDER SHRUG W/BKWD ROTATION X 15 SHOULDER ER STRETCH STDG W/ ELBOW SUPPORTED 3 X 15 SEC STDG TB (GREEN TUBE) X 10 SUPINE CHEST PRESS W/DOWEL PAMELA X 8 SUPINE AAROM USING OPP HAND CHEST PRESS TO OH X 10 (ADDED TO HEP) Manual Therapy Techniques Manual Therapy Minutes (minutes) 10 Manual Therapy Techniques PROM ALL PLANES GRADE 2-3 JOINT MOBILIZATION INFERIOR, POSTERIOR ASSESSED MOBILITY OF AC, SC, CLAVICULAR GLIDE, SCAPULOTHORACIC Treatment Minutes Timed Code Treatment Minutes 45 Total Treatment Time 45 Billing Units Therapeutic Exercise Units 2 Assessment/Impression Assessment/Impression PATIENT JESSICA TX FAIRLY WELL TODAY. HE C/O ANTERIOR, SUPERIOR, POSTERIOR, AND DEEP PAIN THAT WAS SELF LIMITING INTERMITTENTLY THROUGHOUT TODAY SESSION. PATIENT DEMONSTRATED 160DEGREES OF SHOULDER FLEX WHEN WORKING WITH THE RENEE, 70 DEGREES DURING AAROM WITH DOWEL PAMELA, AND 150 DEGREES DURING PROM. SIMILARLY, HE DEMONSTRATED 65 DEGREES OF ER AND 50 DEGREES IR AT 45 DEGREES, WELL 140 DEGREES OF ABD ALL MEASURED IN SUPINE SCAPTION. ASSESSED CAPSULE NOTING NORMAL ARTHROKINEMATICS OF THE GHJ IN SEVERAL POSITIONS WHEN PERFORMING HIS PROM WELL WELL NORMAL AC, SC AND CLAVICULAR GLIDING INDICATING NO RESTRICTIONS WITH PASSIVE STRUCTURES NOR ANY RESTRICTION WITH SCAPULOTHORACIC AROM ( PROTRACTION, RETRACTION, ELEVATION, DEPRESSION, UPWARD AND DOWNWARD ROTATION). PATIENT PROVIDED CONTRADICTORY STATEMENTS ABOUT SYMPTOMS THAT DO NOT MATCH THE DESCRIBED SYMPTOMS THROUGHOUT THE SESSION NOTING PAIN BEHAVIORS (GRIMACING, GUARDING). WE WILL CONTINUE WITH THE PLAN OF CARE TO IMPROVE PAINFREE ROM, STRENGTHENING THE RTC/SCAPULAR MUSCULATURE WELL SYMPTOM MGMT. Plan of Care Physical Therapy Goals 1. Pt. will be indep. with HEP for self maintenance in 8 weeks. 2. Pt. will demonstrate improved shoulder ROM 3. Pt. will be able to raise arm overhead for ADL's without difficulty in 8 weeks. Daily Plan of Care Continue per POC Daily Plan of Care Comments
== END 2023-12-12 09:26 | disposition home or self-care (01) ==
PROVIDERS: PCP Student in an Organized Health Care Education/Training Program; Visit Provider Physician Assistant Surgical
DX: M77.02 Medial epicondylitis, left elbow (principal); M65.342 Trigger finger, left ring finger; M25.512 Pain in left shoulder; M79.642 Pain in left hand; M25.522 Pain in left elbow; M25.642 Stiffness of left hand, not elsewhere classified; Z98.890 Other specified postprocedural states; Z02.6 Encounter for examination for insurance purposes; M75.00 Adhesive capsulitis of unspecified shoulder; Z74.09 Other reduced mobility; R53.1 Weakness; Z51.89 Encounter for other specified aftercare
CPT/HCPCS: 97033; 97035; 97110; 97140; 97161; 97166; X5282